=== PATIENT | male | born 1940 | race Caucasian/White ===

== ENCOUNTER 2020-07-12 19:36 | Inpatient (IN) | payer OTHER, MEDICAID, SELFPAY ==
[~2020-07-12] VITALS: Ht 182.9 cm; Wt 53.5 kg
[2020-07-12 19:36] VITALS: BP 92/52
[2020-07-12] MEDS ORDERED: NACL 0.9% 1,000 ML IV ONE (19:50)
--- NOTE | 2020-07-12 19:52 | NUR ---
PT BIB AMBULANCE FROM [facility]. UPON ARRIVAL PT IS AWAKE, ALERT, ABLE TO SHAKE HEAD YES OR NO WHEN ASKED SIMPLE QUESTIONS. PT WAS COVID POSITIVE 2 WEEKS AGO BUT SINCE HAS HAD TWO NEGATIVE TESTS. RESPIRATIONS REGULAR, UNLABORED, AND EVEN, PT ON RA O2 SAT 100%. PT PLACED ON BEDSIDE MONITOR. BED IN LOWEST POSITION AND SIDERAILS UP X 1. ALLERGIES - IBUPROFEN MED HX - PARKINSONS, HTN, DEMENTIA
--- NOTE | 2020-07-12 20:00 | NUR ---
LABS DRAWN BY COURTNEY REDDING AND GIVEN TO REGULATORY COMPLIANCE OFFICER
--- NOTE | 2020-07-12 20:13 | NUR ---
ATTEMPTED TO DO IN AND OUT CATH, EXPLAINED TO PT HE BECAME VERY UPSET SHAKING HEAD NO AND TRYING TO GET OUT OF BED. MD GRANADOS NOTIFIED PT REFUSING CATH. URINAL PLACED AT BEDSIDE. PT ALSO WROTE A NOTE C/O SORE TO BUTTOCKS AND SHOWED ME. HE HAS SORE TO COCCYZ AREA, WHEN ASKED IF IT HURTS HE ANSWERED YES. MD STEVENS.
--- NOTE | 2020-07-12 20:16 | NUR ---
X-RAY AT BEDSIDE
[2020-07-12] MEDS ORDERED: MORPHINE SULFATE 2 MG/ML SYR IVP ONE (20:30)
--- NOTE | 2020-07-12 20:35 | NUR ---
PT TAKEN TO CT VIA [facility]
[2020-07-12 20:36] LABS: BASOPHILS % (AUTO) 0.4 % (0.0-2.0); EOSINOPHILS # (AUTO) 0.1 K/uL (0-0.4); EOSINOPHILS % (AUTO) 2.8 % (0.0-4.0); HEMATOCRIT 23.7 % (36-52); HEMOGLOBIN 7.7 g/dL (12.0-18.0); LYMPHOCYTES # (AUTO) 0.7 K/uL (2.0-11.5); LYMPHOCYTES % (AUTO) 15.8 % (20.5-51.1); MEAN CORPUSCULAR HEMOGLOBIN 30 pg (27-31); MEAN CORPUSCULAR HGB CONC 33 g/dL (33-37); MEAN CORPUSCULAR VOLUME 92.6 fL (80-94); MONOCYTES # (AUTO) 0.3 K/uL (0.8-1.0); MONOCYTES % (AUTO) 7.9 % (1.7-9.3); NEUTROPHILS # (AUTO) 3.2 K/uL (1.8-7.7); NEUTROPHILS % (AUTO) 73.1 % (42.2-75.2); PLATELET COUNT (AUTO) 150 K/uL (140-450); RED BLOOD CELL COUNT(AUTO) 2.56 MIL/uL (4.20-6.10); RED CELL DISTRIBUTION WIDTH 14.8 % (11.6-13.7); WHITE BLOOD COUNT (AUTO) 4.4 K/uL (4.8-10.8)
--- NOTE | 2020-07-12 20:36 | NUR ---
SPOKE TO PT'S FAMILY IN WAITING ROOM AND UPDATED THEM ON PT'S STATUS. ALSO SPOKE TO PT'S SON PAPITO ON THE PHONE AND UPDATED HIM WELL. ADVISED WE ARE RUNNING LABS AND SOME TESTS AT THIS TIME. PAPITO WOULD LIKE UPDATES WHEN RESULTS ARE BACK AND IF HIS DAD WILL BE ADMITTED. PHONE NUMBER [phone]
[2020-07-12 20:52] LABS: ALBUMIN 2.8 g/dL (3.4-5.0); ANION GAP 12.4 (8-16); ASPARTATE AMINOTRANSFERASE 11 U/L (15-37); CARBON DIOXIDE 24.6 mmol/L (21-32); CHLORIDE 109 mmol/L (98-107); CREATININE 2.7 mg/dL (0.6-1.3); GLUCOSE 89 mg/dL (74-106); SODIUM SERUM 140 mmol/L (136-145); TOTAL BILIRUBIN 0.4 mg/dL (0.0-1.0); UREA NITROGEN, BLOOD 41 mg/dL (7-18)
--- NOTE | 2020-07-12 21:01 | NUR ---
[facility]
[2020-07-12] MEDS ORDERED: INSULIN REGULAR, HUMAN 100 UNIT/ML VIAL SUBQ ONE (21:20)
[2020-07-12] MEDS ORDERED: DEXTROSE 50% 50 ML SYR IVP ONE (21:20)
[2020-07-12] MEDS ORDERED: NACL 0.9% 1,000 ML IV SCH (21:42)
[2020-07-12] MEDS ORDERED: MORPHINE SULFATE 2 MG/ML SYR IVP PRN (21:45)
[2020-07-12] MEDS ORDERED: ACETAMINOPHEN 325 MG TAB PO PRN (21:45)
[2020-07-12] MEDS ORDERED: DOCUSATE SODIUM 100 MG GELCAP PO PRN (21:45)
[2020-07-12] MEDS ORDERED: ONDANSETRON 4 MG/2 ML VIAL IVP PRN (21:45)
[2020-07-12] MEDS ORDERED: HYDROcodone/APAP 5/325 MG 1 TAB TAB PO PRN (21:45)
[2020-07-12] MEDS ORDERED: LORazepam 2 MG/ML VIAL IM/IVP PRN (21:45)
[2020-07-12] MEDS ORDERED: ZOLPIDEM 5 MG TAB PO PRN (21:45)
[2020-07-12] MEDS ORDERED: CALCIUM GLUCONATE 10% 1,000 MG in NACL 0.9% 50 ML IV ONE (21:50)
--- NOTE | 2020-07-12 22:05 | NUR ---
SPOKE TO PATIENT'S SON PAPITO AND ADVISED THAT HIS DAD WILL BE ADMITTED FOR ELEVATED K+
[2020-07-12 22:12] LABS: PROTHROMBIN TIME 10.3 secs (10.8-13.4)
[2020-07-12 22:23] LABS: CHOL/HDL RATIO 3.4 (1-4.5); FREE T4 (FREE THYROXINE) 1.05 ng/dL (0.76-1.46); MAGNESIUM 1.6 mg/dL (1.8-2.4); PHOSPHORUS 3.5 mg/dL (2.5-4.9); THYROID STIMULATING HORMONE 4.37 uIU/mL (0.34-3.74)
[2020-07-12] MEDS ORDERED: ASCO500T95 PO (23:40)
[2020-07-12] MEDS ORDERED: MAGN400S60 PO (23:40)
[2020-07-12] MEDS ORDERED: PIMA34CA PO (23:40)
[2020-07-12] MEDS ORDERED: RASA1TAB PO (23:40)
[2020-07-12] MEDS ORDERED: BISA-28 PO (23:40)
[2020-07-12] MEDS ORDERED: CARB1TAB8 PO (23:40)
[2020-07-12] MEDS ORDERED: MULT-1469 PO (23:40)
[2020-07-12] MEDS ORDERED: CALC500C17 PO (23:40)
[2020-07-12] MEDS ORDERED: CYAN-11 PO (23:40)
[2020-07-12] MEDS ORDERED: SODI15SU PO (23:40)
[2020-07-12] MEDS ORDERED: LACT10SO1 PO (23:40)
[2020-07-12] MEDS ORDERED: GABA100C PO (23:40)
[2020-07-12] MEDS ORDERED: FERR-212 PO (23:40)
--- NOTE | 2020-07-12 23:45 | NUR ---
PT RESTING AT THIS TIME, REMAINS ON BESIDE MONITOR, V/S WNL. RESPIRATIONS REGULAR, UNLABORED, AND EVEN.
--- NOTE | 2020-07-13 01:41 | NUR ---
Patient will be admitted to care of DR GAN. Admited to TELE. Will go to room 107B. Belongings list completed. Report to KALINA REDDING.
[2020-07-13 03:14] VITALS: BP 114/59
[2020-07-13 06:25] LABS: BASOPHILS % (AUTO) 0.3 % (0.0-2.0); EOSINOPHILS % (AUTO) 0.2 % (0.0-4.0); HEMATOCRIT 25.9 % (36-52); HEMOGLOBIN 8.3 g/dL (12.0-18.0); LYMPHOCYTES # (AUTO) 0.6 K/uL (2.0-11.5); LYMPHOCYTES % (AUTO) 9.5 % (20.5-51.1); MEAN CORPUSCULAR HEMOGLOBIN 30 pg (27-31); MEAN CORPUSCULAR HGB CONC 32 g/dL (33-37); MEAN CORPUSCULAR VOLUME 92.3 fL (80-94); MONOCYTES # (AUTO) 0.5 K/uL (0.8-1.0); MONOCYTES % (AUTO) 8.2 % (1.7-9.3); NEUTROPHILS # (AUTO) 4.8 K/uL (1.8-7.7); NEUTROPHILS % (AUTO) 81.8 % (42.2-75.2); PLATELET COUNT (AUTO) 158 K/uL (140-450); RED CELL DISTRIBUTION WIDTH 14.6 % (11.6-13.7); WHITE BLOOD COUNT (AUTO) 5.8 K/uL (4.8-10.8)
[2020-07-13] MEDS ORDERED: MAG SULF 2000 MG/WATER PREMIX 50 ML IV ONE (06:30)
--- NOTE | 2020-07-13 07:10 | NUR ---
RECEIVED REPORT FROM NIGHT NURSE KALINA, PT IS SLEEPING, BED BOUND AND WITH IV SITE INTACT AND PATENT ON THE RIGHT FA. ON ROOM AIR , SAFETY MEASURES IN PLACE AND CALL LIGHT WITHIN REACH. WILL CONTINUE TO MONITOR.
[2020-07-13 08:00] VITALS: BP 138/67
[2020-07-13 08:13] LABS: ANION GAP 14.8 (8-16); CARBON DIOXIDE 21.6 mmol/L (21-32); CHLORIDE 111 mmol/L (98-107); CREATININE 2.1 mg/dL (0.6-1.3); POTASSIUM 5.4 mmol/L (3.5-5.1); SODIUM SERUM 142 mmol/L (136-145); UREA NITROGEN, BLOOD 39 mg/dL (7-18)
--- NOTE | 2020-07-13 08:37 | NUR ---
DR PULIDO ORDERED MECHANICAL SOFT THIN LIQUID DIET FOR PATIENT. SAFETY MEASURES IN PLACE AND CALL LIGHT WITHIN REACH. WILL CONTINUE TO MONITOR.
[2020-07-13 08:56] LABS: GLUCOSE 39 mg/dL (74-106)
--- NOTE | 2020-07-13 08:56 | NUR ---
RECEIVED CRITICAL LAB RESULT LIZ ESCALANTE, GLUCOSE 39MG/DL. AT THIS TIME. FOOD GIVEN AND IVF .
--- NOTE | 2020-07-13 10:09 | NUR ---
COVID 19 ANTIGEN BRYCE ORDERED FOR PATIENT. DONE AND SUBMITTED TO LABORATORY. AWAITING FOR RESULTS.
[2020-07-13 12:00] VITALS: BP 129/70
--- NOTE | 2020-07-13 12:00 | NUR ---
CHECK BLOOD SUGAR AT THIS TIME 60MG/DL. REPORTED TO DR PULIDO AND ORDERED DEXTROSE 50 IVP. SAFETY MEASURED IN PLACE AND CALL LIGHT WITHIN REACH. WILL CONTINUE TO MONITOR.
[2020-07-13] MEDS ORDERED: DEXTROSE 50% 50 ML SYR IVP SCH (12:35)
--- NOTE | 2020-07-13 12:41 | NUR ---
DISCHARGE PLANNING: THIS IS AN 80 Y/O MALE PATIENT FROM [facility], WHO WAS BROUGHT IN DUE ALTERED MENTAL STATUS AND FATIGUE. PAST MEDICAL HISTORY INCLUDE DEMENTIA, PARKINSON'S DISEASE, HTN. INITIAL DIAGNOSIS OF HYPERKALEMIA AND GENERALIZED WEAKNESS. CURRENT LABS INCLUDE WBC 5.8, H/H 8.3/25.9, na/k 142/39/2.1. COVID PENDING. NEPHRO CONSULT IN PLACE. DC PLAN BACK TO [facility] ONCE STABLE. Addendum: 07/16/20 at 1632 by Sarita Lopez CM RECEIVED AN ORDER TO DC BACK TO [facility]. SHAKIR OF [facility] MADE AWARE. CONTACTED PATIENT'S SON KARISHMA MICHAEL AT [phone] TO DISCUSS DC PLAN AND IM LETTER, NO ANSWER. LEFT MESSAGE WITH PHONE NUMBER. WILL FOLLOW UP. Addendum: 07/16/20 at 1645 by Sarita Lopez CM CONTACTED PATIENT'S SON MAGALYS BENNETT AT [phone] TO DISCUSS DC PLAN AND IMM LETTER AND IS IN AGREEMENT. Addendum: 07/16/20 at 1715 by Sarita Lopez CM PER SHAKIR OF [facility], THEY ARE ABLE TO TAKE THE PATIENT BACK. WILL CALL ME BACK FOR ROOM NUMBER [id number] AND WILL BE UNDER THE CARE OF DR. CRONIN. SHE ALSO STATED TO ARRANGE TRANSPORT AND BILL [facility]. CONTACTED [facility] [employer] [facility] AT [phone], ABLE TO SPEAK TO HELIO. PER [employer], THEY ARE NOT WORKING TODAY. CONTACTED [employer] [facility] AT [phone], ABLE TO SPEAK [employer]. PER [employer] NO AVAILABILITY FOR [place] TODAY. CONTACTED [employer] [facility] AT [phone], ABLE TO SPEAK TO [place]. PER [place] THEY ARE NOT CONTRACTED WITH [facility] HOWEVER THEY CAN PROVIDE SERVICES LONG THEIR IS A CREDIT CARD ON FILE. SHAKIR IRWIN [facility] MADE AWARE. SHE STATED SHE DOES NOT HAVE A [employer] CREDIT CARD. CONTACTED [facility] IF THEY ARE ABLE TO DO EARLY ROUNDHOUSE SUPERVISOR TOMORROW , ABLE TO SPEAK TO SPEAK TO HELIO. ROUNDHOUSE SUPERVISOR IS SCHEDULED BETWEEN [phone]. CHARGE NURSE, DR. PULIDO, SHAKIR IRWIN [facility] AND PRIMARY RN MADE AWARE.
--- NOTE | 2020-07-13 13:00 | NUR ---
PATIENT TESTED NEGATIVE FOR COVID 19 ANTIGEN BRYCE.
[2020-07-13] MEDS: DEXT 5% / NACL 0.45% 1,000 ML IV SCH (13:31)
--- NOTE | 2020-07-13 14:41 | NUR ---
07/13/20 RD INITIAL ASSESSMENT COMPLETED PLEASE REFER TO NUTRITION ASSESSMENT UNDER CARE ACTIVITY FOR ESTIMATED NUTRITIONAL NEEDS. 1. PENDING SWALLOW EVALUATION AND EMERGENCY TECHNICIAN RECOMMENDATIONS FOR FOOD TEXTURE 2. RECOMMEND ENSURE TID 3. CONTINUE TO RPOVIDE ASSISTANCE WITH MEALS 4. RD TO FOLLOW-UP 2-3 DAYS, HIGH RISK MICHAEL LÓPEZ RD
[2020-07-13 16:00] VITALS: BP 129/63
[2020-07-13] MEDS ORDERED: bisacodyL 5 MG TABEC PO PRN (16:20)
[2020-07-13] MEDS ORDERED: MAGNESIUM HYDROXIDE 2400 MG/30 ML UDC PO PRN (16:20)
[2020-07-13] MEDS: GABAPENTIN 100 MG CAP PO SCH (17:00)
[2020-07-13] MEDS: CARBIDOPA/LEVODOPA 25/100 MG 1 TAB PO SCH (17:00)
--- NOTE | 2020-07-13 18:14 | NUR ---
PATIENT SON CALLED TO GET UPDATES ABOUT HIS FATHER AT THIS TIME. PT IS EATING WELL AND TOLERATED APPLESAUCE.SAFETY MEASURES IN PLACE AND CALL LIGHT WITHIN REACH. WILL CONTINUE TO MONITOR.
--- NOTE | 2020-07-13 19:10 | NUR ---
ENDORSED TO NIGHT NURSE FOR CONTINUITY OF CARE. PT IS STABLE
--- NOTE | 2020-07-13 19:12 | NUR ---
RECEIVED REPORT FROM AM RN. PT IS STABLE IN NO DISTRESS. RECEIVING IVF D5 1/2 NS AT 100ML/HR. RESPIRATION EVEN AND UNLABORED. ALL SAFETY MEASURES IN PLACE. WILL CONTINUE WITH POC.
[2020-07-13 19:25] LABS: CARBON DIOXIDE 22.6 mmol/L (21-32); CHLORIDE 110 mmol/L (98-107); CREATININE 1.9 mg/dL (0.6-1.3); GLUCOSE 111 mg/dL (74-106); POTASSIUM 5.6 mmol/L (3.5-5.1); SODIUM SERUM 140 mmol/L (136-145); UREA NITROGEN, BLOOD 33 mg/dL (7-18)
[2020-07-13 20:00] VITALS: BP 115/66
--- NOTE | 2020-07-13 20:45 | NUR ---
RECEIVED A CALL FROM LAB REGARDING PATIENT'S BLOOD CULTURE RESULTS= GRAM POSITIVE COCCI IN CLUSTER AND PAIRS. MD WAS CALLED AND NOTIFIED AND ORDERED. REPEAT BLOOD CULTURE, ROCEPHIN 1 GRAM IV DAILY START TONIGHT AND LACTUSBABILLUS TAB DAILY. ORDERS SUBMITTED.
[2020-07-13] MEDS: FERROUS SULFATE 325 MG TABEC PO SCH (20:49)
--- NOTE | 2020-07-13 21:30 | NUR ---
PATIENT IS AWAKE AND ORIENTED X 3 HAS MOMENTS OF INCREASED CONFUSION PER HX DEMENTIA, SOFT SPOKEN, IN NO DISTRESS. TOLERATED PO MEDICATION, HAS IV RIGHT FOREARM 20 GAUGE, PATENT AND INTACT RECEIVING IVF D5-1/2NS AT 100 ML/HR. PT IS INCONTINENT. V/S: 98.6, 60, 20, 115/66, 100% ON 2 L NC. LUNG SOUND DIMINISHED ON THE BASES, ABDOMEN SOFT AND NON-TENDER BS ACTIVE X 4. MRSA SWAB COLLECTED WITH NO COMPLICATIONS AND ROUTED TO LAB. WILL CONTINUE TO MONITOR.
[2020-07-13] MEDS ORDERED: cefTRIAXone 500 MG VIAL ONE (21:45)
--- NOTE | 2020-07-13 23:00 | NUR ---
PT WAS STARTED ON ROCEPHIN PER MD ORDER AT 2145 DUE TO BLOOD CULTURE GRAM POSITIVE COCCI IN CLUSTERS AND PAIRS. PT ALSO HAD REPEAT BLOOD CULTURE PRIOR TO ANTIBIOTIC GIVEN. TOLERATED PROCEDURE WELL. NO ADVERSE SIDE EFFECTS NOTED FROM ANTIBIOTIC USE. WILL CONTINUE TO MONITOR.
[2020-07-14] VITALS: BP 143/63
--- NOTE | 2020-07-14 00:15 | NUR ---
PT RESTING IN BED WITH EYES CLOSED RESPIRATION EVEN AND UNLABORED. IN NO DISTRESS. V/S: 98.3, 61, 20, 143/63, 100% RA. O2 SUPPLEMENT WAS TITRATED DOWN FROM 2 L TO NO OXYGEN AND PT. MAINTAINED ABOVE 95% WITH NO SOB OR RESPIRATORY DISTRESS. WILL CONTINUE TO MONITOR.
[2020-07-14] MEDS: DEXT 5% / NACL 0.45% 1,000 ML IV SCH ×3 (01:35→19:10)
--- NOTE | 2020-07-14 02:35 | NUR ---
ASLEEP, RESPIRATION EVEN AND UNLABORED. IN NO DISTRESS. MUSCLES RELAXED. ENVIRONMENT HAZARD FREE. WILL CONTINUE TO MONITOR.
[2020-07-14 04:00] VITALS: BP 124/54
--- NOTE | 2020-07-14 04:10 | NUR ---
PT RESTING IN BED WITH EYES CLOSED. V/S: 98.3, 56, 16, 124/54, 94% RA. ASSISTED WITH PROVISION OF CARE. UNABLE TO COLLECT URINE SAMPLE DUE TO PT BEING INCONTINENT. TURNED TO PREVENT PRESSURE. WILL CONTINUE TO MONITOR.
--- NOTE | 2020-07-14 06:20 | NUR ---
PT AWAKE IN NO DISTRESS. RESPIRATION EVEN AND UNLABORED. SPO2 99% ON RA. PT OBSERVED MUMBLING UNABLE TO MAKE CLEAR WHAT HE IS SAYING. HAS MOMENTS OF CONFUSION DUE TO HX OF DEMENTIA. CALL LIGHT WITHIN REACH. ALL NEEDS MET AT THIS TIME.
[2020-07-14 07:06] LABS: BASOPHILS % (AUTO) 0.5 % (0.0-2.0); EOSINOPHILS # (AUTO) 0.2 K/uL (0-0.4); EOSINOPHILS % (AUTO) 3.7 % (0.0-4.0); HEMATOCRIT 23.9 % (36-52); HEMOGLOBIN 7.7 g/dL (12.0-18.0); LYMPHOCYTES # (AUTO) 1.3 K/uL (2.0-11.5); LYMPHOCYTES % (AUTO) 30.3 % (20.5-51.1); MEAN CORPUSCULAR HEMOGLOBIN 30 pg (27-31); MEAN CORPUSCULAR HGB CONC 32 g/dL (33-37); MONOCYTES # (AUTO) 0.5 K/uL (0.8-1.0); NEUTROPHILS # (AUTO) 2.3 K/uL (1.8-7.7); NEUTROPHILS % (AUTO) 54.5 % (42.2-75.2); PLATELET COUNT (AUTO) 137 K/uL (140-450); RED CELL DISTRIBUTION WIDTH 14.4 % (11.6-13.7); WHITE BLOOD COUNT (AUTO) 4.3 K/uL (4.8-10.8)
--- NOTE | 2020-07-14 07:12 | NUR ---
PT ENDORSED TO AM RN. PT IS STABLE IN NO DISTRESS.
--- NOTE | 2020-07-14 07:22 | NUR ---
RECEIVED REPORT FROM NIGHT RN. PT A/OX 3 HAS MOMENTS OF INCREASED CONFUSION PER HX DEMENTIA. RESPIRATION EVEN AND UNLABORED, LUNG SOUNDS DIMINISHED IN BASES ON ROOM AIR. HAS IV RIGHT FOREARM 20 GAUGE, PATENT AND INTACT RECEIVING IVF D5-1/2NS AT 100 ML/HR. PT IS INCONTINENT. SAFETY PRECAUTIONS IN PLACE, BED IN LOW POSITION, CALL LIGHT IN REACH. WILL CONTINUE TO MONITOR.
[2020-07-14] MEDS: LACTULOSE 20 GM/30 ML UDC PO SCH (08:27)
[2020-07-14] MEDS: GABAPENTIN 100 MG CAP PO SCH ×3 (08:27→16:18)
[2020-07-14] MEDS: VIT-B COMP/VIT-C/FOLIC ACID 1 TAB PO SCH (08:27)
[2020-07-14] MEDS: LACTOBACILLUS RHAMNOSUS GG 1 EACH CAP PO SCH (08:27)
[2020-07-14] MEDS: CALCIUM CARBONATE 500 MG TAB.CHEW PO SCH (08:27)
[2020-07-14] MEDS: CARBIDOPA/LEVODOPA 25/100 MG 1 TAB PO SCH ×3 (08:28→16:19)
[2020-07-14] MEDS: FERROUS SULFATE 325 MG TABEC PO SCH ×2 (08:29→21:21)
[2020-07-14] MEDS: ASCORBIC ACID 500 MG TAB PO SCH (08:29)
[2020-07-14] MEDS: SELEGILINE 5 MG TAB PO SCH ×2 (08:29→14:35)
[2020-07-14] MEDS: CYANOCOBALAMIN 1,000 MCG TAB PO SCH (08:29)
[2020-07-14] MEDS ORDERED: bisacodyL 10 MG SUPP RC SCH (09:00)
--- NOTE | 2020-07-14 09:10 | NUR ---
PHYSICAL THERAPIST AT BEDSIDE
--- NOTE | 2020-07-14 09:48 | NUR ---
PT REFUSED DULCOLAX. MEDICATION EDUCATION GIVEN. PT STILL REFUSED. WILL CONTINUE TO MONITOR.
[2020-07-14 09:51] VITALS: BP 156/78
[2020-07-14 09:59] LABS: IRON, SERUM 69 ug/dl (50-175); TOTAL IRON BINDING CAPACITY 156 ug/dl (250-450)
--- NOTE | 2020-07-14 10:20 | NUR ---
SKIN ASSESSMENT DONE WITH PRIMARY RN AT BED SIDE , PT IS ABLE TO TURN AND REPOSITION WITH SOME ASSISTANCE. PT. ADMITTED WITH PRESSURE INJURY TO RIGHT SACRUM AREA. POC DISCUSSED WITH PRIMARY RN AND PT. PT. VERBALIZES UNDERSTANDING, NEED REINFORCE TEACHING. INTEGUMENTARY: -RIGHT BUTTOCK SKIN INTACT -RIGHT SACRUM PRESSURE INJURY STAGE 2 0.5X0.8X0.2 CM WOUND BED 100% GRANULATING TISSUE, MOIST NO ODOR, JULEE WOUND SKIN INTACT, SURROUNDING REDNESS FURTHER DAMAGE INDICATED. -BLE DRY AND FLAKY SKIN RECOMMENDATIONS: -APPLY FOAM DRESSING TO COCCYX AREA QD AND PRN IF SOILING -CLEANSE SACRUM WOUND WITH NS, PAT DRY, APPLY HYDROCOLLOID DRESSING, DRESSING CHANGE 3X/WEEK ON [id number] AND PRN IF SOILING -APPLY HYDROGEL TO BLE BID AND SAND DRIER -TURN AND REPOSITION PATIENT Q 2H -ASSESS AND MONITOR SKIN CONDITION DURING POSITION CHANGE, PLEASE PAY ATTENTION TO SACRALCOCCYX, ELBOWS AND HEELS -OFFLOAD BILATERAL HEELS BY PLACING PILLOWS UNDER CALVES AT ALL TIMES, UNLESS OTHERWISE CONTRAINDICATED -PRESSURE REDISTRIBUTION SURFACE THERAPY -PODIATRY CONSULTS IN PLACE -BLE ARTERIAL AND VENOUS U/S PENDING RESULTS -KEEP SKIN CLEAN AND DRY AT ALL TIMES. RECOMMENDATIONS DISCUSSED WITH PRIMARY RN PLEASE CONTACT WOUND CARE NURSE FOR ANY QUESTIONS AND CHANGES IN SKIN CONDITION. Addendum: 07/14/20 at 1605 by Sarina Cano RN (Grace) CORRECTION: -APPLY HYDROGUARD TO BLE BID AND SAND DRIER
--- NOTE | 2020-07-14 10:25 | NUR ---
NEW IV SITE LEFT FOREARM G20. PATIENT TOLERATED IV INSERTION WELL.
[2020-07-14 10:35] LABS: ALBUMIN 2.7 g/dL (3.4-5.0); ANION GAP 16.5 (8-16); ASPARTATE AMINOTRANSFERASE 12 U/L (15-37); CARBON DIOXIDE 19.4 mmol/L (21-32); CHLORIDE 108 mmol/L (98-107); CREATININE 1.7 mg/dL (0.6-1.3); GLUCOSE 75 mg/dL (74-106); MAGNESIUM 1.8 mg/dL (1.8-2.4); POTASSIUM 4.9 mmol/L (3.5-5.1); SODIUM SERUM 139 mmol/L (136-145); TOTAL BILIRUBIN 0.2 mg/dL (0.0-1.0); UREA NITROGEN, BLOOD 28 mg/dL (7-18)
--- NOTE | 2020-07-14 11:08 | NUR ---
INTENSIVE CARE UNIT NURSE AT BEDSIDE CLEANING AND REPOSITIONING PATIENT.
--- NOTE | 2020-07-14 12:00 | NUR ---
URINE SAMPLE COLLECTED AND SENT TO THE LAB
[2020-07-14 12:14] VITALS: BP 126/63
--- NOTE | 2020-07-14 12:31 | NUR ---
ASSISTED PT WITH LUNCH. PT CONSUMED 25% OF LUNCH. 250ML FLUIDS.
[2020-07-14] MEDS ORDERED: EPOETIN ALFA 20,000 UNITS/ML VIAL SUBQ SCH (13:00)
--- NOTE | 2020-07-14 13:09 | NUR ---
ADMINISTERED SCHEDULED MEDS. PT TOLERATED WELL, NO ACUTE DISTRESS NOTED.
--- NOTE | 2020-07-14 13:10 | NUR ---
PT C/O 7/10 ACHING NECK PAIN, GIVEN NORCO PRN. WILL CONTINUE TO MONITOR.
--- NOTE | 2020-07-14 14:38 | NUR ---
ADMINISTERED SCHEDULED MEDS. PT TOLERATED WELL.
--- NOTE | 2020-07-14 14:50 | NUR ---
ULTRASOUND AT BEDSIDE.
--- NOTE | 2020-07-14 15:12 | NUR ---
TECHNICAL SUPPORT INTERN NOTE: SW ATTEMPTED TO CONTACT PATIENT'S SON KARISHMA MICHAEL [phone]. SW LEFT VM AND WILL FOLLOW UP.
--- NOTE | 2020-07-14 15:50 | NUR ---
WOUND CARE PERFORMED. HYDROCOLLOID AND OPTIFOAM DRESSING APPLIED TO SACRAL COCCYX. HYDRAGUARD APPLIED TO BILAT. LOWER EXTREMITIES. HEEL PROTECTORS APPLIED. PT TOLERATED, WILL CONT. TO MONITOR Addendum: 07/14/20 at 1558 by Princess Danae Ba RN REPOSITIONED TO RIGHT-SIDE LYING. LEGS ELEVATED. VOIDED, CLEAR YELLOW NOTED.
--- NOTE | 2020-07-14 16:23 | NUR ---
ADMINISTERED SCHEDULED MEDS. PT TOLERATED. NO ACUTE DISTRESS NOTED.
[2020-07-14 16:27] VITALS: BP_SYST 154; BP_SYST 176; BP_DIAS 81; BP_DIAS 82
--- NOTE | 2020-07-14 16:56 | NUR ---
RADIOLOGY CALLED, NOTIFIED ME THAT ORDER FOR ULTRASOUND OF KIDNEYS WAS CANCELLED. FOLLOWED UP WITH DR PULIDO, WAS TOLD TO REORDER ULTRASOUND OF KIDNEYS. ORDER PLACED.
--- NOTE | 2020-07-14 18:40 | NUR ---
PATIENT ASLEEP AT THIS TIME. NO S/S OF DISTRESS NOTED. HEEL PROTECTORS IN PLACE. LEGS ELEVATED. FALL PRECAUTION IN PLACE. WILL CONTINUE TO MONITOR
[2020-07-14 18:48] LABS: APPEARANCE,URINE CLEAR (CLEAR); BILIRUBIN,URINE NEGATIVE (NEGATIVE); BLOOD, URINE NEGATIVE (NEGATIVE); LEUKOCYTE ESTERASE ,URINE NEGATIVE (NEGATIVE); NITRITE, URINE NEGATIVE (NEGATIVE); UGLUCOSE NEGATIVE (NEGATIVE)
[2020-07-14 19:02] LABS: COLOR,URINE STRAW (YELLOW)
--- NOTE | 2020-07-14 19:20 | NUR ---
ENDORSED PT TO NIGHT RN. PT IN STABLE CONDITION.
[2020-07-14 20:00] VITALS: BP 122/60
[2020-07-15] VITALS: BP 128/69
[2020-07-15] MEDS: HYDRAGUARD CREAM TP SCH ×2 (01:16→13:19)
[2020-07-15 04:00] VITALS: BP 132/87
[2020-07-15] MEDS: DEXT 5% / NACL 0.45% 1,000 ML IV SCH ×2 (04:55→10:00)
[2020-07-15 06:11] LABS: BASOPHILS % (AUTO) 0.7 % (0.0-2.0); EOSINOPHILS # (AUTO) 0.3 K/uL (0-0.4); EOSINOPHILS % (AUTO) 6.1 % (0.0-4.0); HEMATOCRIT 27.2 % (36-52); HEMOGLOBIN 8.8 g/dL (12.0-18.0); LYMPHOCYTES # (AUTO) 1.6 K/uL (2.0-11.5); LYMPHOCYTES % (AUTO) 37.5 % (20.5-51.1); MEAN CORPUSCULAR HEMOGLOBIN 30 pg (27-31); MEAN CORPUSCULAR HGB CONC 32 g/dL (33-37); MEAN CORPUSCULAR VOLUME 92.5 fL (80-94); MONOCYTES # (AUTO) 0.4 K/uL (0.8-1.0); MONOCYTES % (AUTO) 9.7 % (1.7-9.3); PLATELET COUNT (AUTO) 140 K/uL (140-450); RED BLOOD CELL COUNT(AUTO) 2.93 MIL/uL (4.20-6.10); RED CELL DISTRIBUTION WIDTH 14.6 % (11.6-13.7); WHITE BLOOD COUNT (AUTO) 4.4 K/uL (4.8-10.8)
[2020-07-15 06:35] LABS: ALBUMIN 2.8 g/dL (3.4-5.0); ANION GAP 13.2 (8-16); ASPARTATE AMINOTRANSFERASE 14 U/L (15-37); CARBON DIOXIDE 22.6 mmol/L (21-32); CHLORIDE 109 mmol/L (98-107); CREATININE 1.5 mg/dL (0.6-1.3); GLUCOSE 73 mg/dL (74-106); POTASSIUM 4.8 mmol/L (3.5-5.1); SODIUM SERUM 140 mmol/L (136-145); TOTAL BILIRUBIN 0.3 mg/dL (0.0-1.0); UREA NITROGEN, BLOOD 22 mg/dL (7-18)
--- NOTE | 2020-07-15 07:30 | NUR ---
RECEIVED REPORT FROM [facility] NURSE, ASSUMED CARE. PT RESTING COMFORTABLY IN BED WITH NO S/S OF PAIN AND/OR DISTRESS AT THIS TIME. PERSONAL BELONGINGS, BEDSIDE TABLE, CALL LIGHT WITHIN REACH. WILL CONTINUE TO MONITOR.
[2020-07-15 07:32] LABS: MAGNESIUM 1.6 mg/dL (1.8-2.4); PHOSPHORUS 3.1 mg/dL (2.5-4.9)
[2020-07-15 08:00] VITALS: BP 132/78
[2020-07-15] MEDS: CYANOCOBALAMIN 1,000 MCG TAB PO SCH (09:22)
[2020-07-15] MEDS: CALCIUM CARBONATE 500 MG TAB.CHEW PO SCH (09:22)
[2020-07-15] MEDS: FERROUS SULFATE 325 MG TABEC PO SCH ×2 (09:22→21:00)
[2020-07-15] MEDS: GABAPENTIN 100 MG CAP PO SCH ×3 (09:23→17:51)
[2020-07-15] MEDS: ASCORBIC ACID 500 MG TAB PO SCH (09:23)
[2020-07-15] MEDS: CARBIDOPA/LEVODOPA 25/100 MG 1 TAB PO SCH ×3 (09:23→17:51)
[2020-07-15] MEDS: LACTULOSE 20 GM/30 ML UDC PO SCH (09:32)
[2020-07-15] MEDS: LACTOBACILLUS RHAMNOSUS GG 1 EACH CAP PO SCH (09:33)
[2020-07-15] MEDS: HYDROCOLLOID DRESSING TP SCH (09:33)
[2020-07-15] MEDS: SELEGILINE 5 MG TAB PO SCH ×2 (09:33→15:09)
[2020-07-15] MEDS: VIT-B COMP/VIT-C/FOLIC ACID 1 TAB PO SCH (09:33)
--- NOTE | 2020-07-15 10:20 | NUR ---
(07/15/20) RD FOLLOW UP COMPLETED PLEASE REFER TO NUTRITION PROGRESS NOTE UNDER CARE ACTIVITY FOR ESTIMATED NUTRITION NEEDS. RD RECOMMENDATIONS: 1. CONTINUE MECHANICAL SOFT DIET TOLERATED 2. CONTINUE ENSURE TID 3. CONTINUE TO RPOVIDE ASSISTANCE WITH MEALS NEEDED 4. RD TO FOLLOW-UP 3-5 DAYS, MODERATE RISK LAWRENCE HOWELL MS, RDN
[2020-07-15 12:00] VITALS: BP 128/70
[2020-07-15 16:00] VITALS: BP 118/63
--- NOTE | 2020-07-15 18:24 | NUR ---
CARE PLAN REVIEWED, INTERVENTIONS IMPLEMENTED: PT REPOSITIONED FREQUENTLY THROUGHOUT SHIFT, NUTRITION ENCOURAGEMENT, LABS AND I/O MONITORED, WOUND MGMT. VSS, AFEBRILE, O2 SAT >92% ON 1 LPM NC. NO C/O PAIN THROUGHOUT SHIFT. PT CONTINUES ON IV FLUIDS WITH NO ADVERSE REACTIONS NOTED AND/OR REPORTED. SPOKE WITH SON, RE: DISCHARGE PLAN. PERSONAL BELONGINGS, BEDSIDE TABLE, CALL LIGHT WITHIN REACH. WILL CONTINUE TO MONITOR.
[2020-07-15 20:00] VITALS: BP 173/89
[2020-07-16] VITALS: BP 136/66
[2020-07-16] MEDS: HYDRAGUARD CREAM TP SCH ×2 (01:21→13:59)
[2020-07-16] MEDS: DEXT 5% / NACL 0.45% 1,000 ML IV SCH ×3 (01:22→21:10)
[2020-07-16 04:13] VITALS: BP 128/75
[2020-07-16 06:04] LABS: BASOPHILS % (AUTO) 0.5 % (0.0-2.0); EOSINOPHILS # (AUTO) 0.3 K/uL (0-0.4); EOSINOPHILS % (AUTO) 5.8 % (0.0-4.0); HEMATOCRIT 26.7 % (36-52); HEMOGLOBIN 8.5 g/dL (12.0-18.0); LYMPHOCYTES # (AUTO) 1.5 K/uL (2.0-11.5); LYMPHOCYTES % (AUTO) 34.8 % (20.5-51.1); MEAN CORPUSCULAR HEMOGLOBIN 30 pg (27-31); MEAN CORPUSCULAR HGB CONC 32 g/dL (33-37); MONOCYTES # (AUTO) 0.6 K/uL (0.8-1.0); MONOCYTES % (AUTO) 12.6 % (1.7-9.3); NEUTROPHILS % (AUTO) 46.3 % (42.2-75.2); PLATELET COUNT (AUTO) 131 K/uL (140-450); RED BLOOD CELL COUNT(AUTO) 2.87 MIL/uL (4.20-6.10); RED CELL DISTRIBUTION WIDTH 14.6 % (11.6-13.7); WHITE BLOOD COUNT (AUTO) 4.4 K/uL (4.8-10.8)
[2020-07-16 06:14] LABS: ANION GAP 10.1 (8-16); CHLORIDE 109 mmol/L (98-107); CREATININE 1.6 mg/dL (0.6-1.3); GLUCOSE 79 mg/dL (74-106); POTASSIUM 5.1 mmol/L (3.5-5.1); SODIUM SERUM 140 mmol/L (136-145); UREA NITROGEN, BLOOD 18 mg/dL (7-18)
[2020-07-16 06:33] LABS: MAGNESIUM 1.5 mg/dL (1.8-2.4); PHOSPHORUS 3.9 mg/dL (2.5-4.9)
--- NOTE | 2020-07-16 07:30 | NUR ---
RECEIVED REPORT FROM [facility] NURSE, ASSUMED CARE. PT RESTING COMFORTABLY IN BED WITH NO S/S OF PAIN AND/OR DISTRESS AT THIS TIME. PERSONAL BELONGINGS, BEDSIDE TABLE, CALL LIGHT WITHIN REACH. WILL CONTINUE TO MONITOR.
[2020-07-16 08:00] VITALS: BP 109/63
[2020-07-16] MEDS ORDERED: SODIUM ZIRCONIUM CYCLOSILICATE 10 GM POWD.PACK PO SCH ×2 (09:00→15:00)
[2020-07-16] MEDS: LACTULOSE 20 GM/30 ML UDC PO SCH (09:00)
[2020-07-16] MEDS: MAG SULF 2000 MG/WATER PREMIX 50 ML IV SCH ×2 (09:09→11:43)
[2020-07-16] MEDS: VIT-B COMP/VIT-C/FOLIC ACID 1 TAB PO SCH (09:10)
[2020-07-16] MEDS: CYANOCOBALAMIN 1,000 MCG TAB PO SCH (09:10)
[2020-07-16] MEDS: GABAPENTIN 100 MG CAP PO SCH ×3 (09:10→16:27)
[2020-07-16] MEDS: CALCIUM CARBONATE 500 MG TAB.CHEW PO SCH (09:10)
[2020-07-16] MEDS: ASCORBIC ACID 500 MG TAB PO SCH (09:11)
[2020-07-16] MEDS: CARBIDOPA/LEVODOPA 25/100 MG 1 TAB PO SCH ×3 (09:11→16:28)
[2020-07-16] MEDS: FERROUS SULFATE 325 MG TABEC PO SCH ×2 (09:11→21:19)
[2020-07-16] MEDS: LACTOBACILLUS RHAMNOSUS GG 1 EACH CAP PO SCH (11:44)
[2020-07-16] MEDS: SELEGILINE 5 MG TAB PO SCH ×2 (11:44→16:28)
[2020-07-16 12:00] VITALS: BP 141/83
[2020-07-16 13:45] LABS: ANION GAP 11.9 (8-16); CARBON DIOXIDE 24.2 mmol/L (21-32); CHLORIDE 108 mmol/L (98-107); CREATININE 1.4 mg/dL (0.6-1.3); GLUCOSE 114 mg/dL (74-106); POTASSIUM 5.1 mmol/L (3.5-5.1); SODIUM SERUM 139 mmol/L (136-145); UREA NITROGEN, BLOOD 17 mg/dL (7-18)
--- NOTE | 2020-07-16 15:57 | NUR ---
CONSENT FOR COLONOSCOPY SIGNED BY PT AND PLACED IN FRONT OF PT'S CHART, AWAITING PHYSICIAN SIGNATURE. Addendum: 07/16/20 at 1558 by Manjit Petit RN IGNORE NOTE, WRONG PATIENT.
[2020-07-16 16:00] VITALS: BP 163/76
--- NOTE | 2020-07-16 18:15 | NUR ---
CARE PLAN REVIEWED, INTERVENTIONS IMPLEMENTED: PT REPOSITIONED THROUGHOUT SHIFT, LABS AND I/O MONITORED. NOURISHMENT/HYDRATION ENCOURAGED, WOUND MGMT. VSS, AFEBRILE, O2 SAT >92% ON RA. N/O PAIN THROUGHOUT SHIFT. PT CONTINUES ON IV FLUIDS, TOLERATING WELL. SPOKE WITH MAGALYS (SON) RE: PT'S CARE AND DISCHARGE PLAN. EMILE STEWART STATED PT POSSIBLY TO DISCHARGE 07/17/2020 [id number] VIA STRETCHER, NO TRANSPORT AVAILABLE THIS EVENING. ALL NEEDS MET THIS SHIFT. PERSONAL BELONGINGS, BEDSIDE TABLE, CALL LIGHT WITHIN REACH. WILL CONTINUE TO MONITOR.
--- NOTE | 2020-07-16 19:15 | NUR ---
RECEIVED PT FROM DAY RN. AOX2 ON ROOM AIR, O2 SAT 100%. NO S/S RESPIRATORY DISTRESS. DENIES PAIN. IV SITE R WRIST 22G, PATENT AND INTACT. IV FLUID RUNNING D5 1/2 NS AT 100ML/HR. SAFETY MEASURES IN PLACE. CALL LIGHT WITHIN REACH. WILL CONTINUE TO MONITOR
[2020-07-16 20:00] VITALS: BP 145/72
--- NOTE | 2020-07-16 21:20 | NUR ---
ADMINISTERED SCHEDULED MEDS PER MD. PT TOLERATED WELL. WILL CONTINUE TO MONITOR
--- NOTE | 2020-07-17 00:15 | NUR ---
PT ASLEEP IN BED. NO DISTRESS NOTED. WILL CONTINUE TO MONITOR
[2020-07-17] MEDS: DEXT 5% / NACL 0.45% 1,000 ML IV SCH (02:03)
[2020-07-17 04:00] VITALS: BP 153/65
[2020-07-17] MEDS: HYDRAGUARD CREAM TP SCH (04:57)
[2020-07-17 05:11] VITALS: BP 153/65
--- NOTE | 2020-07-17 06:45 | NUR ---
CALLED AND GAVE REPORT TO ARIANNA BREWSTER FOR TRANSFER OF CARE
[2020-07-17 07:05] LABS: BASOPHILS % (AUTO) 0.4 % (0.0-2.0); EOSINOPHILS # (AUTO) 0.2 K/uL (0-0.4); EOSINOPHILS % (AUTO) 3.5 % (0.0-4.0); HEMATOCRIT 26.6 % (36-52); HEMOGLOBIN 8.7 g/dL (12.0-18.0); LYMPHOCYTES # (AUTO) 0.9 K/uL (2.0-11.5); LYMPHOCYTES % (AUTO) 14.7 % (20.5-51.1); MEAN CORPUSCULAR HEMOGLOBIN 30 pg (27-31); MEAN CORPUSCULAR HGB CONC 33 g/dL (33-37); MONOCYTES # (AUTO) 0.9 K/uL (0.8-1.0); MONOCYTES % (AUTO) 13.5 % (1.7-9.3); NEUTROPHILS # (AUTO) 4.4 K/uL (1.8-7.7); NEUTROPHILS % (AUTO) 67.9 % (42.2-75.2); PLATELET COUNT (AUTO) 155 K/uL (140-450); RED BLOOD CELL COUNT(AUTO) 2.92 MIL/uL (4.20-6.10); RED CELL DISTRIBUTION WIDTH 14.6 % (11.6-13.7); WHITE BLOOD COUNT (AUTO) 6.4 K/uL (4.8-10.8)
--- NOTE | 2020-07-17 07:20 | NUR ---
ENDORSED PT IN STABLE CONDITION TO DAY RN FOR CONTINUITY OF CARE
--- NOTE | 2020-07-17 07:21 | NUR ---
RECEIVED ENDORSEMENT CHIEF OF SURGERY NURSE, ASLEEP ON BED, BREATHING SPONTANEOUSLY AT ROOM, NOT IN DISTRESS NOTED. FOR DISCHARGE TODAY AWAITING FOR TRANSPORT.
[2020-07-17 07:30] LABS: ANION GAP 14.6 (8-16); CARBON DIOXIDE 21.3 mmol/L (21-32); CHLORIDE 106 mmol/L (98-107); CREATININE 1.5 mg/dL (0.6-1.3); GLUCOSE 91 mg/dL (74-106); POTASSIUM 4.9 mmol/L (3.5-5.1); SODIUM SERUM 137 mmol/L (136-145); UREA NITROGEN, BLOOD 18 mg/dL (7-18)
[2020-07-17 08:20] LABS: MAGNESIUM 2.2 mg/dL (1.8-2.4); PHOSPHORUS 3.4 mg/dL (2.5-4.9)
[2020-07-17] MEDS: LACTULOSE 20 GM/30 ML UDC PO SCH (09:02)
[2020-07-17] MEDS: LACTOBACILLUS RHAMNOSUS GG 1 EACH CAP PO SCH (09:02)
[2020-07-17] MEDS: GABAPENTIN 100 MG CAP PO SCH (09:03)
[2020-07-17] MEDS: CARBIDOPA/LEVODOPA 25/100 MG 1 TAB PO SCH (09:03)
[2020-07-17] MEDS: FERROUS SULFATE 325 MG TABEC PO SCH (09:03)
[2020-07-17] MEDS: VIT-B COMP/VIT-C/FOLIC ACID 1 TAB PO SCH (09:03)
[2020-07-17] MEDS: CYANOCOBALAMIN 1,000 MCG TAB PO SCH (09:04)
[2020-07-17] MEDS: CALCIUM CARBONATE 500 MG TAB.CHEW PO SCH (09:04)
[2020-07-17] MEDS: ASCORBIC ACID 500 MG TAB PO SCH (09:04)
[2020-07-17] MEDS: SELEGILINE 5 MG TAB PO SCH (09:07)
[2020-07-17] MEDS: HYDROCOLLOID DRESSING TP SCH (09:26)
--- NOTE | 2020-07-17 09:27 | NUR ---
PUREE DIET SERVE, FEEDING ASSISTED WITH GOOD SWALLOWING NOTED. DUE MEDICATION GIVEN WITH APPLE SAUCE. TOLERATED WELL
--- NOTE | 2020-07-17 09:52 | NUR ---
FULLY AWAKE, PHYSICAL THERAPIST DOING THE EXERCISES.
--- NOTE | 2020-07-17 10:13 | NUR ---
FACULTY I ON CALL MEDICAL ASSISTANT NOTE: Patient's Orientation Unable To Assess Information Provided By KARISHMA ACEVEDOZ - SON Comments SW WAS UNABLE TO MEET PATIENT AT BEDSIDE. SW CONTACTED PATIENT'S SON, KARISHMA MICHAEL TO VERIFY DEMOGRAPHICS. PER KARISHMA, ALL OF PATIENT'S NEEDS ARE BEING MET AT [facility]. Sanding Machine Buffer, Realtionship and Phone Number KARISHMA CARRASQUILLO [phone] Healthcare Power of [employer] Lead No Does Patient Have a POLST No Identifying Problems No Social Work Triggers Is A Social Work Consult Needed No Mandate Report Filed No Explanation Of Identifying Problems PATIENT IS AN 80-YEAR-OLD MALE ADMITTED FOR HYPERKALEMIA AND GENERALIZED WEAKNESS. PATIENT HAS PMHX OF PARKINSON'S DISEASE, DEMENTIA, AND HYPERTENSION. Admitted From Care Home Facility Care Home Facility [facility] - [phone] Pre-Admission Level Of Functioning Status Total Care Prior Resources/Services Used In Last 12 Months SNF Alf Care Prior DME Wheelchair Patient Had Caregiver No Home Support No Caregiver Issues Financial Issues No Known Financial Issue Referral To The Financial Counselor Needed No Factors/Needs SNF/NH Placement Explanation And Or Other Factors Affecting/Possible DC Needs PER PATIENT'S SON, PATIENT IS FCI AND ON A BED HOLD. Pt/Rep Participated In Discharge Plan Yes Patient/Family Agress With Discharge Plan Yes Discharge Plan Comments TENTATIVE DISCHARGE PLAN IS FOR PATIENT TO RETURN HOME. DC Plan Status Initiated
--- NOTE | 2020-07-17 10:50 | NUR ---
IV CANNULA REMOVED AND PREPARED FOR DISCHARGE, GOWN CHANGED. FOR DIRECTOR MERIT SYSTEM AFTER 15 MINUTES.
--- NOTE | 2020-07-17 11:10 | NUR ---
DISCHARGED IN STABLE CONDITION PER STRETCHER ACCOMPANIED TRANSPORT PERSONNEL TO [facility]. BREATHING SPONTANEOUSLY AT ROOM AIR, DISCHARGED PACKET INSTRUCTION GIVEN AND FULLY INSTRUCTED. ID BAND REMOVED AND PROPERLY DISPOSED.
== END 2020-07-17 11:10 | DRG 70 ==
LOC: MED 19:36 → MTU 21:47
PROVIDERS: ADMIT Family Medicine; ATTEND Family Medicine
DX: G93.41 Metabolic encephalopathy (principal); N17.0 Acute kidney failure with tubular necrosis; E43 Unspecified severe protein-calorie malnutrition; Z68.1 Body mass index [BMI] 19.9 or less, adult; E87.5 Hyperkalemia; G20 Parkinson's disease; I12.9 Hypertensive chronic kidney disease with stage 1 through stage 4 chronic kidney disease, or unspecified chronic kidney disease; N18.3 Chronic kidney disease, stage 3 (moderate); E83.42 Hypomagnesemia; E87.8 Other disorders of electrolyte and fluid balance, not elsewhere classified; S31.010A Laceration without foreign body of lower back and pelvis without penetration into retroperitoneum, initial encounter; E16.2 Hypoglycemia, unspecified; X58.XXXA Exposure to other specified factors, initial encounter; F02.80 Dementia in other diseases classified elsewhere, unspecified severity, without behavioral disturbance, psychotic disturbance, mood disturbance, and anxiety; I10 Essential (primary) hypertension; G90.9 Disorder of the autonomic nervous system, unspecified; Z20.828 Contact with and (suspected) exposure to other viral communicable diseases; D64.9 Anemia, unspecified; Z86.19 Personal history of other infectious and parasitic diseases; Z88.6 Allergy status to analgesic agent; Z79.899 Other long term (current) drug therapy; Y93.9 Activity, unspecified; Y92.89 Other specified places as the place of occurrence of the external cause; Y99.8 Other external cause status
CPT/HCPCS: 36415; 70450; 71045; 76770; 80048; 80053; 81003; 82150; 82948; 83036; 83540; 83605; 83690; 83735; 83880; 84100; 84439; 84443; 84484; 85025; 85610; 85730; 87040; 87081; 87086; 87186; 93005; 96365; 96372; 96375; 97110; 97112; 97116; 97161-GP; 97530; 99285; J0610; J0696; J0885; J1815; J2270; J3420; J3475; J7042; J7060; Q0092

== ENCOUNTER 2020-09-13 14:34 | Inpatient (IN) | payer OTHER, MEDICAID ==
[~2020-09-13] VITALS: Ht 172.7 cm; Wt 74.8 kg
[~2020-09-13 14:34] MED LIST: ASCO500T95 PO; BISA-28 PO; CALC500C17 PO; CARB1TAB8 PO; CEPH250C16 PO; CYAN-11 PO; FERR-212 PO; GABA100C PO; LACT10SO1 PO; MAGN400S60 PO; MULT-1469 PO; PIMA34CA PO; RASA1TAB PO; SODI15SU PO
--- NOTE | 2020-09-13 14:34 | NUR ---
PATIENT JOSUÉ BLS TO ER BED 02 Addendum: 09/13/20 at 1442 by MEDWB PATIENT JOSUÉ ALS TO ER BED 02
[2020-09-13 14:36] VITALS: BP 95/42
--- NOTE | 2020-09-13 14:40 | NUR ---
PT BIBA FROM [facility] FOR LOW HGB 6.3 THAT WAS DONE ON 09/12/2020. PT PRESENTS WITH POLAR SKIN, CAP REFILLS >3 S ON JOE FINGERNAILS, AND O2 SATS 88% ON RA UPON TRIAGE. PT IS A&OX2 HIS BASE LINE PER EMS. PT DENIES ANY CP, SOB, OR COUGH AT THIS TIME. PATIENT'S PAIN IS 4/10 ON FLACC SCALE AT THIS TIME; VSS; PATIENT POSITIONED FOR COMFORT; HOB ELEVATED; BEDRAILS UP X2; BED DOWN. ER MD MADE AWARE OF PT STATUS.
[2020-09-13] MEDS ORDERED: [UNRECOGNIZED DRUG - CODE] PO (14:58)
[2020-09-13] MEDS ORDERED: DOCU-299 PO (14:58)
[2020-09-13 15:12] LABS: BASOPHILS % (AUTO) 0.5 % (0.0-2.0); EOSINOPHILS # (AUTO) 0.5 K/uL (0-0.4); EOSINOPHILS % (AUTO) 5.6 % (0.0-4.0); LYMPHOCYTES # (AUTO) 0.9 K/uL (2.0-11.5); LYMPHOCYTES % (AUTO) 9.4 % (20.5-51.1); MEAN CORPUSCULAR HEMOGLOBIN 29 pg (27-31); MEAN CORPUSCULAR HGB CONC 33 g/dL (33-37); MEAN CORPUSCULAR VOLUME 89.4 fL (80-94); MONOCYTES # (AUTO) 0.7 K/uL (0.8-1.0); NEUTROPHILS # (AUTO) 7.5 K/uL (1.8-7.7); NEUTROPHILS % (AUTO) 77.5 % (42.2-75.2); PLATELET COUNT (AUTO) 313 K/uL (140-450); RED BLOOD CELL COUNT(AUTO) 2.14 MIL/uL (4.20-6.10); RED CELL DISTRIBUTION WIDTH 16.3 % (11.6-13.7); WHITE BLOOD COUNT (AUTO) 9.7 K/uL (4.8-10.8)
[2020-09-13 15:14] LABS: HEMATOCRIT 19.1 % (36-52); HEMOGLOBIN 6.2 g/dL (12.0-18.0)
[2020-09-13] MEDS ORDERED: KAY15 PO (15:17)
[2020-09-13] MEDS ORDERED: BISA-218 RC (15:17)
[2020-09-13] MEDS ORDERED: ZINC220C28 PO (15:17)
[2020-09-13] MEDS ORDERED: ONDA4TAB PO (15:17)
[2020-09-13] MEDS ORDERED: ACET-2619 PO (15:17)
[2020-09-13] MEDS ORDERED: NA P135N RC (15:17)
[2020-09-13] MEDS ORDERED: VITA-16 PO (15:17)
[2020-09-13] MEDS ORDERED: METO25TA PO (15:17)
[2020-09-13] MEDS ORDERED: SYN.05 PO (15:17)
[2020-09-13] MEDS ORDERED: HYDR-5122 PO (15:17)
--- NOTE | 2020-09-13 15:19 | NUR ---
XRAY IS AT BEDSIDE.
[2020-09-13 15:26] LABS: ANION GAP 13.5 (8-16); ASPARTATE AMINOTRANSFERASE 18 U/L (15-37); CHLORIDE 107 mmol/L (98-107); CREATININE 2.7 mg/dL (0.6-1.3); GLUCOSE 107 mg/dL (74-106); POTASSIUM 3.5 mmol/L (3.5-5.1); SODIUM SERUM 140 mmol/L (136-145); TOTAL BILIRUBIN 0.3 mg/dL (0.0-1.0); UREA NITROGEN, BLOOD 50 mg/dL (7-18)
[2020-09-13 15:28] LABS: PROTHROMBIN TIME 10.9 secs (10.8-13.4)
[2020-09-13 15:59] LABS: APPEARANCE,URINE CLOUDY (CLEAR); BILIRUBIN,URINE NEGATIVE (NEGATIVE); BLOOD, URINE TRACE-I (NEGATIVE); COLOR,URINE YELLOW (YELLOW); LEUKOCYTE ESTERASE ,URINE 2+ (NEGATIVE); NITRITE, URINE NEGATIVE (NEGATIVE); UGLUCOSE NEGATIVE (NEGATIVE)
[2020-09-13 16:08] LABS: WBC,URINE 80-100 /HPF (0-5)
--- NOTE | 2020-09-13 16:09 | NUR ---
BLOOD TRANSFUSION CONSENT OBTAINED VIA PHONE CALL FROM MAGALYS MICHAEL AND CO-SIGNED BY STEPHANIA. Addendum: 09/13/20 at 1652 by MED MAGALYS STATED HE IS THE PERSON WHO MAKES MEDICAL DECISIONS FOR LYDIA MICHAEL.
[2020-09-13] MEDS ORDERED: cefTRIAXone 1,000 MG VIAL ONE (16:34)
[2020-09-13] MEDS ORDERED: ACETAMINOPHEN 325 MG TAB PO PRN ×2 (17:00→17:15)
[2020-09-13] MEDS ORDERED: NACL 0.9% 1,000 ML IV SCH (17:00)
[2020-09-13] MEDS ORDERED: POTASSIUM CHLORIDE 10 MEQ TABER PO PRN ×2 (17:00→17:15)
[2020-09-13] MEDS ORDERED: DOCUSATE SODIUM 100 MG GELCAP PO PRN ×3 (17:00→17:20)
[2020-09-13] MEDS ORDERED: HYDROcodone/APAP 7.5/325 MG 1 TAB PO PRN ×2 (17:00→17:15)
[2020-09-13] MEDS ORDERED: ONDANSETRON 4 MG/2 ML VIAL IM/IVP PRN ×2 (17:00→17:15)
[2020-09-13] MEDS ORDERED: MAGNESIUM HYDROXIDE 2400 MG/30 ML UDC PO PRN (17:20)
[2020-09-13] MEDS ORDERED: bisacodyL 10 MG SUPP RC PRN (17:20)
--- NOTE | 2020-09-13 17:20 | NUR ---
Patient will be admitted to care of severe anemia. Admited to TELE. Will go to room 108b. Belongings list completed. Report to MILADIS Wilkes. 1 unit of red blood cell is ready to be picked up in the lab. Endorsed to Katrin REDDING of [facility].
--- NOTE | 2020-09-13 17:20 | NUR ---
RECEIVED REPORT FROM ER NURSE KENTRELL FOR CONTINUITY OF CARE. PATIENT AAOX2. WITH OCCASIONAL CONFUSION, R/T HX OF DEMENTIA. RESPIRATORY EVEN AND UNLABORED, O2 SAT 98% WITH 2L NC. SKIN WARM AND DRY, SACRAL STAGE 2 PRESSURE ULCER NOTED. IV SITE LEFT FOREARM 18G. BEDREST, PATIENT DENIES PAIN OR DISCOMFORT AT THIS TIME. DX WITH SEVERE ANEMIA. MRSA NARES COLLECTED. SAFETY MEASURES IN PLACE, WILL CONTINUE TO MONITOR.
[2020-09-13 17:44] LABS: CHOL/HDL RATIO 3.6 (1-4.5); FREE T4 (FREE THYROXINE) 1.16 ng/dL (0.76-1.46); MAGNESIUM 1.9 mg/dL (1.8-2.4); THYROID STIMULATING HORMONE 3.04 uIU/mL (0.34-3.74)
[2020-09-13] MEDS: NACL 0.9% 1,000 ML IV SCH (18:00)
--- NOTE | 2020-09-13 18:25 | NUR ---
FED PATIENT, TAKEN 80% OF DINNER. PATIENT DENIES PAIN OR DISCOMFORT. SAFETY MEASURES IN PLACE, WILL CONTINUE TO MONITOR.
--- NOTE | 2020-09-13 19:15 | NUR ---
ENDORSED PATIENT TO CARPET WINDER RN FOR CONTINUITY OF CARE. VS STABLE.
--- NOTE | 2020-09-13 19:25 | NUR ---
RECEIVED BEDSIDE REPORT FROM DAY SHIFT NURSE FOR CONTINUITY OF CARE. PT IS AWAKE AND SPEAKING APPROPRIATELY. ON 2L O2 NC WITH BREATHING UNLABORED. PT IS BRADYCARDIA ON TELE MONITORING. PT IS ON BEDREST WITH DRY CHUCKS IN PLACE. SKIN IS WARM AND DRY. SKIN IS NOT INTACT, SACRAL WOUND WITH OPTIFOAM IN PLACE. IV IS IN THE LEFT FOREARM 18 GAUGE RUNNING NS AT 60 ML PER HOUR PER ORDER. H&H IS BELOW NORMAL VALUES AND BLOOD TRANSFUSION PENDING. BLOOD IS NOW READY AND WILL BE TRANSFUSED SHORTLY. PLAN OF CARE DISCUSSED. BED IS IN THE LOWEST POSITION AND CALL LIGHT IS WITHIN REACH. FALL PRECAUTIONS IN PLACE. PT IS STABLE.
[2020-09-13 20:00] VITALS: BP 131/68
--- NOTE | 2020-09-13 20:15 | NUR ---
BLOOD TRANSFUSION WAS STARTED. VS ARE STABLE. WILL CONTINUE TO MONITOR CLOSELY FOR ANY ADVERSE REACTIONS. PT WAS GIVEN EDUCATION ON WHY HE IS RECEIVING A BLOOD TRANSFUSION AND HIS SON CONSENTED TO THE PROCEDURE. Addendum: 09/13/20 at 223 by Julissa Andrade RN BLOOD TRANSFUSION WAS STARTED AT 2214
--- NOTE | 2020-09-13 21:00 | NUR ---
PT WAS CHANGED AND REPOSITIONED. WOUND DRESSING WAS DRY AND INTACT ON THE SACRAL AREA. NO DRAINAGE ON THE DRESSING. PT WAS PLACED ON THE RIGHT LATERAL POSITION. PILLOW WAS PLACED BETWEEN KNEES TO PREVENT RUBBING AND BREAKDOWN. PT ONLY VOIDED. WILL COLLECT STOOL SAMPLE WHEN PT HAS A BM.
[2020-09-13] MEDS: CALCIUM CARB 600 MG TAB PO SCH (21:46)
[2020-09-13] MEDS: CARBIDOPA/LEVODOPA 25/100 MG 1 TAB PO SCH (21:46)
[2020-09-13] MEDS: FERROUS SULFATE 325 MG TABEC PO SCH (21:47)
--- NOTE | 2020-09-13 22:15 | NUR ---
BLOOD TRANSFUSION WAS STARTED. CONSENT WAS SIGNED BY ER NURSE FROM SON. TUBING WAS PRIMED AND CLAMPED WITH NS AND BLOOD IS INFUSING. VS ARE STABLE. WILL MONITOR FOR ADVERSE REACTIONS. TRANSFUSION WAS EXPLAINED TO PT AND ADVERSE REACTIONS WERE ALSO EXPLAINED. PT VERBALIZED UNDERSTANDING.
--- NOTE | 2020-09-13 23:00 | NUR ---
PT WAS CHANGED AND REPOSITIONED. SOILED LINENS WERE REMOVED AND PT ONLY VOIDED. BM STILL HASN'T BEEN COLLECTED. SCD'S ARE IN PLACE AND IV IS INTACT WITH THE BLOOD TRANSFUSION RUNNING. NO ADVERSE REACTIONS AND VS AT STABLE.
[2020-09-14] VITALS: BP 138/74
--- NOTE | 2020-09-14 01:00 | NUR ---
PT WAS TURNED Q 2H ORDERED. PT'S WOUND WAS ASSESSED AND SOILED DRESSING WAS CHANGED. WOUND WAS CLEANSED WITH NS AND PATTED DRY. PT TOLERATED THE CHANGING WELL. PT WAS REPOSITIONED ON THE LEFT LATERAL SIDE. SCD'S ARE IN PLACE. FALL PRECAUTIONS ARE IN ORDER AND BED IS IN THE LOWEST POSITION WITH BED ALARM ON. BLOOD TRANSFUSION IS STILL RUNNING, NO DISTRESS NOTED.
[2020-09-14] MEDS: CARBIDOPA/LEVODOPA 25/100 MG 1 TAB PO SCH ×5 (01:23→17:12)
--- NOTE | 2020-09-14 02:00 | NUR ---
BLOOD TRANSFUSION IS FINISHED AND TUBING WAS REMOVED. NS IS NOW RUNNING AT 60 ML PER HOUR PER ORDER. PT TOLERATED THE TRANSFUSION WELL. NO SIGNS OF DISTRESS AND BREATHING IS UNLABORED. BP IS 113/61, HR IS 78, TEMP IS 97.7, O2 SAT IS 90%, FLACC 0. BED IS IN LOWEST POSITION AND CALL LIGHT IS WITHIN REACH.
--- NOTE | 2020-09-14 03:51 | NUR ---
PT IS ASLEEP. NO DISTRESS OR PAIN AT THIS TIME. FLACC 0. IV IS PATENT AND INFUSING NS. CALL LIGHT IS WITHIN REACH.
[2020-09-14 04:00] VITALS: BP 126/67
--- NOTE | 2020-09-14 05:50 | NUR ---
PT WAS GIVEN APPLESAUCE AND MILK FOR A SNACK. BLANKETS WERE PLACED ON TOP OF PT BECAUSE HE WAS COLD. SCD'S ARE IN PLACE. IV FLUIDS ARE RUNNING. NEEDS HAVE BEEN MET. BED ALARM IS ON.
[2020-09-14 06:21] LABS: ANION GAP 13.4 (8-16); CARBON DIOXIDE 21.5 mmol/L (21-32); CHLORIDE 108 mmol/L (98-107); CREATININE 2.3 mg/dL (0.6-1.3); GLUCOSE 96 mg/dL (74-106); POTASSIUM 3.9 mmol/L (3.5-5.1); SODIUM SERUM 139 mmol/L (136-145); UREA NITROGEN, BLOOD 50 mg/dL (7-18)
[2020-09-14 06:36] LABS: MAGNESIUM 1.9 mg/dL (1.8-2.4); PHOSPHORUS 3.7 mg/dL (2.5-4.9)
[2020-09-14] MEDS: LEVOTHYROXINE 0.05 MG TAB PO SCH (06:46)
--- NOTE | 2020-09-14 07:15 | NUR ---
RECEIVED PATIENT FROM NIGHT NURSE. PATIENT IS IN BED AWAKE, ALERT AND RESPONSIVE TO STAFF, ORIENTED X3. RESP EVEN AND UNLABORED ON ROOM AIR. DENIES OF PAIN AT THIS TIME. PATIENT IS ABLE TO FOLLOW COMMANDS AND ABLE TO MAKE NEEDS KNOWN. PLAN OF CARE DISCUSSED WITH PATIENT. PATIENT VERBALIZED UNDERSTANDING. LFA 18G INFUSING NS 60ML/HR. CALL LIGHT WITHIN REACH. WILL CONTINUE TO MONITOR.
--- NOTE | 2020-09-14 07:15 | NUR ---
ENDORSED PT TO DAY SHIFT NURSE FOR CONTINUITY OF CARE. PT IS AWAKE AND STABLE AT THIS TIME. IV IS INFUSING AND PATENT. PLAN OF CARE DISCUSSED.
[2020-09-14 08:00] VITALS: BP 120/56
[2020-09-14 08:03] LABS: BASOPHILS % (AUTO) 0.5 % (0.0-2.0); EOSINOPHILS # (AUTO) 0.2 K/uL (0-0.4); EOSINOPHILS % (AUTO) 3.1 % (0.0-4.0); LYMPHOCYTES % (AUTO) 12.2 % (20.5-51.1); MEAN CORPUSCULAR HEMOGLOBIN 29 pg (27-31); MEAN CORPUSCULAR HGB CONC 32 g/dL (33-37); MEAN CORPUSCULAR VOLUME 88.1 fL (80-94); MONOCYTES # (AUTO) 0.5 K/uL (0.8-1.0); MONOCYTES % (AUTO) 6.5 % (1.7-9.3); NEUTROPHILS # (AUTO) 6.2 K/uL (1.8-7.7); NEUTROPHILS % (AUTO) 77.7 % (42.2-75.2); PLATELET COUNT (AUTO) 306 K/uL (140-450); RED BLOOD CELL COUNT(AUTO) 2.24 MIL/uL (4.20-6.10); RED CELL DISTRIBUTION WIDTH 16.2 % (11.6-13.7); WHITE BLOOD COUNT (AUTO) 7.9 K/uL (4.8-10.8)
[2020-09-14 08:12] LABS: HEMATOCRIT 19.7 % (36-52); HEMOGLOBIN 6.4 g/dL (12.0-18.0)
--- NOTE | 2020-09-14 08:51 | NUR ---
PATIENT HAS BEEN SCREENED AND CATEGORIZED HIGH NUTRITION RISK. PATIENT WILL BE SEEN WITHIN 1-2 DAYS OF ADMISSION. 09/14/20-09/15/[address]
[2020-09-14] MEDS ORDERED: CYANOCOBALAMIN PO SCH (09:00)
[2020-09-14] MEDS ORDERED: NON-FORMULARY ITEM (Cholecalciferol (Vitamin D3) (Vitamin D3) 50 MCG) PO SCH (09:00)
[2020-09-14] MEDS ORDERED: METOPROLOL 25 MG TAB PO SCH (09:00)
[2020-09-14 09:06] LABS: T4 (THYROXINE) 6.1 ug/dL (4.5-12.0)
--- NOTE | 2020-09-14 09:11 | NUR ---
CALL PLACE TO [facility] TALKED TO DENIS, ASKING FOR MED NUPLAZID 34 MG AND AZILECT 1 TAB NOT AVAILABLE IN THE PHARMACY, PER DENIS SHE WILL CALL US BACK, SHE NEED TO ASK HER LAMINATOR HAND.
[2020-09-14] MEDS: EPOETIN ALFA 2,000 UNITS/ML VIAL IV SCH (09:25)
[2020-09-14] MEDS: CHOLECALCIFEROL 1,000 IU TAB PO SCH (09:26)
[2020-09-14] MEDS: VIT-B COMP/VIT-C/FOLIC ACID 1 TAB PO SCH (09:26)
[2020-09-14] MEDS: CYANOCOBALAMIN 1,000 MCG TAB PO SCH (09:26)
[2020-09-14] MEDS: ASCORBIC ACID 500 MG TAB PO SCH (09:27)
[2020-09-14] MEDS: FERROUS SULFATE 325 MG TABEC PO SCH (09:28)
[2020-09-14] MEDS: ZINC SULF 220 MG CAP PO SCH (09:28)
[2020-09-14] MEDS: CALCIUM CARB 600 MG TAB PO SCH ×2 (09:29→21:30)
[2020-09-14] MEDS: GABAPENTIN 100 MG CAP PO SCH ×3 (09:29→17:12)
--- NOTE | 2020-09-14 09:43 | NUR ---
MORNING ROUTINE MEDICATIONS GIVEN. PATIENT TOLERATED WELL WITH APPLESAUCE. LUNGS CLEAR. PT AT BEDSIDE. PATIENT IS PLEASANT AND ABLE TO FOLLOW COMMANDS. ABLE TO MAKE NEEDS KNOWN. LFA 18G INFUSING WELL. RESP EVEN AND UNLABORED ON ROOM AIR. DENIES OF PAIN AT THIS TIME. SKIN IS WARM TO TOUCH. WILL PROVIDE WOUND CARE PER ORDER. CALL LIGHT WITHIN REACH. WILL CONTINUE TO MONITOR.
[2020-09-14] MEDS: NACL 0.9% 1,000 ML IV SCH (09:55)
[2020-09-14] MEDS ORDERED: SODIUM FERRIC GLUCONATE 125 MG in NACL 0.9% 100 ML IV SCH (10:00)
--- NOTE | 2020-09-14 11:13 | NUR ---
SOCIAL WORK NOTE: Patient's Orientation Unable To Assess Information Provided By MAGALYS MICHAEL - SON Comments SW WAS UNABLE TO MEET PATIENT AT BEDSIDE. SW CONTACTED PATIENT'S SON MAGALYS MICHAEL TO COMPLETE ASSESSMENT. Landing Support Specialist, Realtionship and Phone Number MAGALYS MICHAEL SON/HEALTHCARE DECISION MAKER [phone] KARISHMA CARRASQUILLO [phone] Healthcare Power of Motorcycle Police No Does Patient Have a POLST No Identifying Problems No Social Work Triggers Is A Social Work Consult Needed No Mandate Report Filed No Explanation Of Identifying Problems PATIENT IS A 80-YEAR-OLD MALE ADMITTED FOR SEVERE ANEMIA. PATIENT HAS PMHX OF DEMENTIA, GERD, AND HYPERTENSION. Admitted From Prison Facility Prison Facility [facility] [phone] Pre-Admission Level Of Functioning Status Total Care Level Of Functioning Comment PER PATIENT'S SON, PATIENT IS BED-BOUND AND SOMETIMES USES A WHEELCHAIR. Prior Resources/Services Used In Last 12 Months SNF Group Home Care Prior Resources/Service Comments PER SON, PATIENT IS INTERMEDIATE AND ON A BED HOLD. Prior DME Wheelchair Dialysis Comments PER PATIENT'S SON, PATIENT DOES NOT RECEIVE DIALYSIS. Patient Had Caregiver No Home Support No Caregiver Issues Financial Issues No Known Financial Issue Referral To The Financial Counselor Needed No Factors/Needs No D/C Needs Identified Pt/Rep Participated In Discharge Plan Yes Patient/Family Agress With Discharge Plan Yes Discharge Plan Comments TENTATIVE DISCHARGE PLAN IS FOR PATIENT TO RETURN TO [facility] Plan Status Initiated
--- NOTE | 2020-09-14 11:15 | NUR ---
SOCIAL WORK NOTE: Patient's Orientation Unable To Assess Information Provided By MAGALYS MICHAEL - SON Comments SW WAS UNABLE TO MEET PATIENT AT BEDSIDE. SW CONTACTED PATIENT'S SON MAGALYS MICHAEL TO COMPLETE ASSESSMENT. Hand Crown Pouncer, Realtionship and Phone Number MAGALYS MICHAEL SON/HEALTHCARE DECISION MAKER [phone] KARISHMA CARRASQUILLO [phone] Healthcare Power of Bank Teller Machine Mechanic No Does Patient Have a POLST No Identifying Problems No Social Work Triggers Is A Social Work Consult Needed No Mandate Report Filed No Explanation Of Identifying Problems PATIENT IS A 80-YEAR-OLD MALE ADMITTED FOR SEVERE ANEMIA. PATIENT HAS PMHX OF DEMENTIA, GERD, AND HYPERTENSION. Admitted From [facility]pc Facility Fpc Facility [facility] [phone] Pre-Admission Level Of Functioning Status Total Care Level Of Functioning Comment PER PATIENT'S SON, PATIENT IS BED-BOUND AND SOMETIMES USES A WHEELCHAIR. Prior Resources/Services Used In Last 12 Months SNF Care Home Care Prior Resources/Service Comments PER SON, PATIENT IS USP AND ON A BED HOLD. Prior DME Wheelchair Dialysis Comments PER PATIENT'S SON, PATIENT DOES NOT RECEIVE DIALYSIS. Patient Had Caregiver No Home Support No Caregiver Issues Financial Issues No Known Financial Issue Referral To The Financial Counselor Needed No Factors/Needs No D/C Needs Identified Pt/Rep Participated In Discharge Plan Yes Patient/Family Agress With Discharge Plan Yes Discharge Plan Comments TENTATIVE DISCHARGE PLAN IS FOR PATIENT TO RETURN TO [facility] Plan Status Initiated
--- NOTE | 2020-09-14 11:26 | NUR ---
SHAKIR FROM [facility] DROPPED OFF PATIENT MEDICATIONS OF AZILECT AND NUPLAZID. COUNTS VERIFIED. MEDICATIONS GIVEN TO [facility] PHARMACIST.
[2020-09-14] MEDS ORDERED: PIMAVANSERIN TARTRATE 34 MG PO SCH (11:46)
[2020-09-14] MEDS ORDERED: RASAGILINE MESYLATE PO SCH (11:49)
[2020-09-14 12:00] VITALS: BP 106/61
--- NOTE | 2020-09-14 13:00 | NUR ---
BLOOD TRANSFUSION STARTED. VITALS ARE STABLE. WILL MONITOR CLOSELY FOR ADVERSE REACTION. PATIENT VERBALIZED UNDERSTANDING OF BLOOD TRANSFUSION. WILL CONTINUE TO MONITOR.
--- NOTE | 2020-09-14 14:50 | NUR ---
09/14/20 RD INITIAL ASSESSMENT COMPLETED PLEASE REFER TO NUTRITION ASSESSMENT UNDER CARE ACTIVITY FOR ESTIMATED NUTRITIONAL NEEDS. 1. CONTINUE PUREE DIET TOLERATED 2. RECOMMEND ENSURE BID 3. CONTINUE VITAMIN C AND ZINC SUPPLEMENTATION FOR WOUND HEALING 4. RD TO FOLLOW-UP 3-5 DAYS, MODERATE RISK MICHAEL LÓPEZ RD
--- NOTE | 2020-09-14 14:58 | NUR ---
BLOOD TRANSFUSION IS IN PROGRESS. VITALS WNL. NO NOTED REACTION AT THIS TIME. PATIENT EXHIBITS A LOT OF INVOLUNTARY MOVEMENTS D/T HX PARKINSONS. PATIENT ABLE TO FOLLOW COMMANDS AND MAKE NEEDS KNOWN. PATIENT REPOSITIONED AND TURNED. CALL LIGHT WITHIN REACH. WILL CONTINUE TO MONITOR.
[2020-09-14 16:00] VITALS: BP 126/66
[2020-09-14] MEDS: DEXT 5% / NACL 0.45% 1,000 ML IV SCH (17:11)
--- NOTE | 2020-09-14 17:15 | NUR ---
BLOOD TRANSFUSION COMPLETE. PATIENT IN STABLE CONDITION. NO NOTED REACTION AT THIS TIME. VITALS WNL. ROUTINE MEDICATIONS CARRIED OUT. PATIENT REPOSITIONED AND TURNED. RESP EVEN AND UNLABORED ON ROOM AIR. PATIENT IS COMFORTABLE IN BED. CALL LIGHT WITHIN REACH. WILL CONTINUE TO MONITOR.
--- NOTE | 2020-09-14 17:59 | NUR ---
BLADDER SCAN DONE, RESIDUAL > 750 ML. RAYMOND CATH WILL BE INSERTED. Addendum: 09/14/20 at 1800 by Kathe Monsivais RN PER DR BAKER
--- NOTE | 2020-09-14 18:17 | NUR ---
RAYMOND CATHETER INSERTED, 16FR USING STERILE TECHNIQUE. PATIENT TOLERATED WELL. URINE SPECIMEN COLLECTED AND SENT TO LAB. 800 ML CLOUDY YELLOW URINE EMPTY FROM RAYMOND BAG.
[2020-09-14 18:46] LABS: APPEARANCE,URINE CLOUDY (CLEAR); BILIRUBIN,URINE NEGATIVE (NEGATIVE); BLOOD, URINE 1+ (NEGATIVE); COLOR,URINE YELLOW (YELLOW); LEUKOCYTE ESTERASE ,URINE 1+ (NEGATIVE); NITRITE, URINE NEGATIVE (NEGATIVE); UGLUCOSE NEGATIVE (NEGATIVE)
--- NOTE | 2020-09-14 19:25 | NUR ---
ENDORSED PATIENT TO NIGHT NURSE. PATIENT IN STABLE CONDITION.
--- NOTE | 2020-09-14 19:26 | NUR ---
RECEIVED BEDSIDE ENDORSEMENT FROM AM SHIFT RN. PATIENT LYING IN BED, NO SOB, ON ROOM AIR, LFA 18 G, INTACT, INFUSING IVF, WITH SACRAL WOUND PER ENDORSEMENT, DRESSING DRY AND INTACT, SAFETY MEASURES IN PLACE, FALL PROTOCOL IN PLACE, CALL LIGHT WITHIN REACH. Addendum: 09/14/20 at 5 by Whit Peña RN WITH MANDI YBARRA IN PLACE TODAY IN AM 09/14/2020
[2020-09-14 19:53] LABS: WBC,URINE 16-25 (MOD) /HPF (0-5)
[2020-09-14 20:00] VITALS: BP 126/65
[2020-09-14] MEDS: LACTULOSE 20 GM/30 ML UDC PO SCH (21:30)
[2020-09-14 21:34] LABS: BASOPHILS % (AUTO) 0.5 % (0.0-2.0); EOSINOPHILS # (AUTO) 0.3 K/uL (0-0.4); EOSINOPHILS % (AUTO) 3.6 % (0.0-4.0); HEMOGLOBIN 8.8 g/dL (12.0-18.0); LYMPHOCYTES # (AUTO) 0.9 K/uL (2.0-11.5); LYMPHOCYTES % (AUTO) 10.3 % (20.5-51.1); MEAN CORPUSCULAR HEMOGLOBIN 29 pg (27-31); MEAN CORPUSCULAR HGB CONC 32 g/dL (33-37); MEAN CORPUSCULAR VOLUME 88.2 fL (80-94); MONOCYTES # (AUTO) 0.6 K/uL (0.8-1.0); MONOCYTES % (AUTO) 7.4 % (1.7-9.3); NEUTROPHILS # (AUTO) 6.5 K/uL (1.8-7.7); NEUTROPHILS % (AUTO) 78.2 % (42.2-75.2); PLATELET COUNT (AUTO) 331 K/uL (140-450); RED BLOOD CELL COUNT(AUTO) 3.06 MIL/uL (4.20-6.10); WHITE BLOOD COUNT (AUTO) 8.4 K/uL (4.8-10.8)
--- NOTE | 2020-09-14 21:37 | NUR ---
due meds given as ordered, tolerated well.
--- NOTE | 2020-09-14 23:30 | NUR ---
JULEE CARE RENDERED, REPOSITIONED, KEPT WARM & COMFORTABLE, NO SOB, CALL LIGHT WITHIN REACH.
[2020-09-15] VITALS: BP 118/63
--- NOTE | 2020-09-15 02:12 | NUR ---
PATIENT IS ASLEEP, O2 SAT AT 100% ON RA. WILL MONITOR, CALL LIGHT WITHIN REACH.
[2020-09-15 04:00] VITALS: BP 123/69
[2020-09-15] MEDS: DEXT 5% / NACL 0.45% 1,000 ML IV SCH (04:07)
--- NOTE | 2020-09-15 04:10 | NUR ---
IVF CHANGED, HANGED A NEW IV BAG OF D5 1/2 NS AT 80 CC/HR. IV SITE PATENT, PATIENT IS SLEEPING, NO SOB.
[2020-09-15] MEDS: LEVOTHYROXINE 0.05 MG TAB PO SCH (06:10)
--- NOTE | 2020-09-15 06:19 | NUR ---
SYNTHROID PO GIVEN ORDERED, TOLERATED WELL.
--- NOTE | 2020-09-15 07:19 | NUR ---
RECEIVED REPORT FROM NIGHT NURSE FOR CONTINUITY OF CARE, PT IS STABLE, PT ASLEEP IN BED, RESPIRATIONS ARE EVEN AND UNLABORED ON ROOM AIR, PT HAS LEFT FA 18G INFUSING D51/2NS AT 80 ML/H, PT HAS SACRAL WOUND, PT IS NPO, WILL INTRODUCE SELF, BED IN LOW POSITION, SAFETY MEASURES IN PLACE, CALL LIGHT WITHIN REACH, WILL CONTINUE TO MONITOR.
--- NOTE | 2020-09-15 07:20 | NUR ---
PATIENT IS IN STABLE CONDITION. BEDSIDE ENDORSEMENT GIVEN TO MILADIS MANTILLA FOR CONTINUITY OF CARE.
[2020-09-15 08:00] VITALS: BP 145/70
[2020-09-15] MEDS: CHOLECALCIFEROL 1,000 IU TAB PO SCH (09:12)
[2020-09-15] MEDS: ASCORBIC ACID 500 MG TAB PO SCH (09:13)
[2020-09-15] MEDS: CALCIUM CARB 600 MG TAB PO SCH ×2 (09:13→20:45)
[2020-09-15] MEDS: CYANOCOBALAMIN 1,000 MCG TAB PO SCH (09:14)
[2020-09-15] MEDS: VIT-B COMP/VIT-C/FOLIC ACID 1 TAB PO SCH (09:14)
[2020-09-15] MEDS: GABAPENTIN 100 MG CAP PO SCH ×3 (09:17→20:44)
[2020-09-15] MEDS: LACTULOSE 20 GM/30 ML UDC PO SCH ×2 (09:17→20:44)
[2020-09-15] MEDS: ZINC SULF 220 MG CAP PO SCH (09:17)
[2020-09-15] MEDS: CARBIDOPA/LEVODOPA 25/100 MG 1 TAB PO SCH ×3 (09:17→18:38)
[2020-09-15] MEDS: PIMAVANSERIN TARTRATE 34 MG PO SCH (09:18)
[2020-09-15] MEDS: RASAGILINE MESYLATE PO SCH (09:19)
--- NOTE | 2020-09-15 09:29 | NUR ---
ADMINISTERED SCHEDULED MEDICATION, MEDICATION EDUCATION PROVIDED, PT TOLERATED MEDICATION WELL WITH APPLESAUCE, PT IS STABLE, CALL LIGHT WITHIN REACH, SAFETY MEASURES IN PLACE, WILL CONTINUE TO MONITOR.
--- NOTE | 2020-09-15 10:59 | NUR ---
WOUND CARE EVALUATION NOTE: REASON FOR EVALUATION: LOW ZACKERY SCALE AND SACRAL WOUND SKIN ASSESSMENT DONE WITH THIS 80 Y/O MALE PT ADMITTED TO [facility] WITH INITIAL DX. ABNORMAL LAB. PAST MEDICAL HX INCLUDES PARKINSON'S DISEASE, CKD, ANEMIA, DEMENTIA AND HYPERTENSION. ALL ABOVE INFORMATION OBTAINED FROM ADMISSION H&P. ADMITTING BMI 25.1, H/H 6.2/19.1, ALBUMIN 2.0. PT SKIN IS WARM AND DRY, BLE HAIR NO GROWTH, NO EDEMA. DORSAL PEDAL PULSES PRESENT AND NORMAL. CAPILLARY REFILLED < 2 SEC. F/C PATENT WITH MODERATE AMOUNT CLEAR YELLOW URINE OUTPUT. PLAN OF CARE DISCUSSED WITH PRIMARY RN. INTEGUMENTARY: -INCONTINENT ASSOCIATE DERMATITIS (IAD) TO: B/L GROINS, POSTERIOR SCROTAL, SKIN REDNESS, -COCCYX PRESSURE INJURY STAGE 2, 2X1X0.1CM WOUND BED IS 100% GRANULATING TISSUE, MOIST, NO ODOR, JULEE WOUND SKIN INTACT, SURROUNDING REDNESS INDICATED FURTHER DAMAGE RECOMMENDATIONS: -PROVIDE GOOD JULEE CARE, APPLY HYDRAGUARD TO B/L GROINS, POSTERIOR SCROTAL BID AND BINDERY OPERATOR -CLEANSE COCCYX WITH WOUND CLEANSING SOLUTION AND APPLY ADAPTIC DRESSING COVER WITH DRY DRESSING QD AND PRN IF SOILING -APPLY HEEL PROTECTORS TO BOTH HEELS AT ALL TIMES -OFFLOAD BILATERAL HEELS BY PLACING PILLOWS UNDER CALVES UNLESS OTHERWISE CONTRAINDICATED -PRESSURE REDISTRIBUTION SURFACE THERAPY -TURN AND REPOSITION Q2H, OFFLOAD SACRALCOCCYX BY TURNING RIGHT AND LEFT -CONTINUE TO FOLLOW RD RECOMMENDATIONS ALL ABOVE RECOMMENDATIONS DISCUSSED WITH PRIMARY RN. PLEASE CONTACT WOUND CARE NURSE FOR ANY QUESTION AND CHANGE OF WOUND CONDITION
--- NOTE | 2020-09-15 11:30 | NUR ---
PT RESTING IN BED, NO SIGNS OF DISTRESS NOTED, RESPIRATIONS ARE EVEN AND UNLABORED ON ROOM AIR, CALL LIGHT WITHIN REACH, WILL CONTINUE TO MONITOR.
[2020-09-15 12:00] VITALS: BP 107/54
[2020-09-15 12:38] LABS: CREATININE,URINE RANDOM 52 mg/dL (30-125); URINE SODIUM, RANDOM 70 mmol/l (40-220)
[2020-09-15] MEDS: HYDRAGUARD CREAM TP SCH (13:00)
[2020-09-15] MEDS ORDERED: fentaNYL citrate 0.05 MG/ML VIAL ONE (14:00)
[2020-09-15] MEDS ORDERED: MIDAZOLAM 2 MG/2 ML VIAL ONE ×2 (14:00→14:01)
--- NOTE | 2020-09-15 14:15 | NUR ---
PT OFF UNIT FOR PROCEDURE.
--- NOTE | 2020-09-15 14:40 | NUR ---
PT BACK IN ROOM, PT IS STABLE, WILL CONTINUE TO MONITOR VITALS PER PROTOCOL, CALL LIGHT WITHIN REACH.
[2020-09-15] MEDS ORDERED: FUROSEMIDE 20 MG/2 ML VIAL IVP SCH (15:00)
--- NOTE | 2020-09-15 15:00 | NUR ---
PT ASLEEP IN BED, NO SIGNS OF DISTRESS NOTED, RESPIRATIONS ARE EVEN AND UNLABORED ON 2 LITERS NASAL CANNULA, WILL CONTINUE TO MONITOR.
[2020-09-15] MEDS ORDERED: MIDAZOLAM 2 MG/2 ML VIAL IVP ONE (15:20)
[2020-09-15] MEDS ORDERED: fentaNYL citrate 0.05 MG/ML VIAL IVP ONE (15:20)
[2020-09-15 16:00] VITALS: BP 115/45
--- NOTE | 2020-09-15 17:00 | NUR ---
PT ASLEEP IN BED, NO SIGNS OF DISTRESS NOTED, CALL LIGHT WITHIN REACH, WILL CONTINUE TO MONITOR.
--- NOTE | 2020-09-15 18:40 | NUR ---
ADMINISTERED SCHEDULED MEDICATION, MEDICATION EDUCATION PROVIDED, PT TOLERATED WELL WITH APPLESAUCE, PT IS STABLE, NO SIGNS OF DISTRESS NOTED, CALL LIGHT WITHIN REACH, WILL CONTINUE TO MONITOR.
--- NOTE | 2020-09-15 19:10 | NUR ---
ENDORSE PT TO NIGHT NURSE FOR CONTINUITY OF CARE, PT IS STABLE
--- NOTE | 2020-09-15 19:11 | NUR ---
RECEIVED BEDSIDE ENDORSEMENT FROM MILADIS MANTILLA. PATIENT IS LYING IN BED, NO SOB, NO PAIN NOTED, IV SITE INTACT INFUSING IVF, PLAN OF CARE DISCUSSED, FALL PROTOCOL IN PLACE, SAFETY MEASURES IN PLACE, CALL LIGHT WITHIN REACH, WILL CONTINUE TO MONITOR. Addendum: 09/15/20 at 2056 by Whit Peña RN PATIENT DOES NOT HAVE IVF, IV SITE LAC, SALINE LOCK.
[2020-09-15 20:00] VITALS: BP 145/75
--- NOTE | 2020-09-15 20:58 | NUR ---
PATIENT IS AWAKE, ELEVATED HOB, DUE MEDS GIVEN ORDERED, TOLERATED WELL.
[2020-09-16] VITALS: BP 137/66
--- NOTE | 2020-09-16 00:20 | NUR ---
V/S TAKEN, REPOSITIONED, KEPT COMFORTABLE, NO DISTRESS, CALL LIGHT WITHIN REACH.
[2020-09-16] MEDS: HYDRAGUARD CREAM TP SCH ×2 (01:35→13:11)
--- NOTE | 2020-09-16 02:17 | NUR ---
CHECKED PATIENT, RESPIRATION EVEN AND UNLABORED, NO SOB. WILL MONITOR.
[2020-09-16 04:00] VITALS: BP 140/64
--- NOTE | 2020-09-16 04:10 | NUR ---
PERINEAL CARE RENDERED, NOTED SMALL BM. REPOSITIONED.
[2020-09-16] MEDS: LEVOTHYROXINE 0.05 MG TAB PO SCH (05:53)
--- NOTE | 2020-09-16 06:02 | NUR ---
SYNTHROID PO GIVEN ORDERED, TOLERATED WELL, REPOSITIONED, KEPT COMFORTABLE.
[2020-09-16 06:29] LABS: BASOPHILS % (AUTO) 0.6 % (0.0-2.0); EOSINOPHILS # (AUTO) 0.3 K/uL (0-0.4); EOSINOPHILS % (AUTO) 3.3 % (0.0-4.0); HEMATOCRIT 26.4 % (36-52); HEMOGLOBIN 8.7 g/dL (12.0-18.0); LYMPHOCYTES % (AUTO) 11.7 % (20.5-51.1); MEAN CORPUSCULAR HEMOGLOBIN 29 pg (27-31); MEAN CORPUSCULAR HGB CONC 33 g/dL (33-37); MEAN CORPUSCULAR VOLUME 88.1 fL (80-94); MONOCYTES # (AUTO) 0.7 K/uL (0.8-1.0); MONOCYTES % (AUTO) 8.6 % (1.7-9.3); NEUTROPHILS # (AUTO) 6.4 K/uL (1.8-7.7); NEUTROPHILS % (AUTO) 75.8 % (42.2-75.2); PLATELET COUNT (AUTO) 334 K/uL (140-450); RED BLOOD CELL COUNT(AUTO) 2.99 MIL/uL (4.20-6.10); RED CELL DISTRIBUTION WIDTH 16.1 % (11.6-13.7); WHITE BLOOD COUNT (AUTO) 8.4 K/uL (4.8-10.8)
--- NOTE | 2020-09-16 07:19 | NUR ---
PATIENT IS IN STABLE CONDITION. BEDSIDE ENDORSEMENT WAS GIVEN TO MILADIS CLEARY FOR CONTINUITY OF CARE.
--- NOTE | 2020-09-16 07:25 | NUR ---
RECEIVED PT FROM BUSINESS ANALYTICS DIRECTOR NURSE, PT IS RESTING IN BED, 18 G IV NOTED TO RFA, RAYMOND CATHETER NOTED W/300 ML URINE, SACRAL WOUND NOTED WITH DRESSING IN PLACE, ON ROOM AIR, SAFETY AND FALL PRECAUTIONS IN PLACE, 2 SIDE HEAD RAILS UP, NO SIGNS OF DISTRESS, WILL CONTINUE TO MONITOR PT
[2020-09-16 07:45] LABS: ANION GAP 15.3 (8-16); CARBON DIOXIDE 24.3 mmol/L (21-32); CHLORIDE 110 mmol/L (98-107); CREATININE 1.8 mg/dL (0.6-1.3); GLUCOSE 79 mg/dL (74-106); POTASSIUM 4.6 mmol/L (3.5-5.1); SODIUM SERUM 145 mmol/L (136-145); UREA NITROGEN, BLOOD 39 mg/dL (7-18)
[2020-09-16 08:00] VITALS: BP 149/72
[2020-09-16] MEDS: CALCIUM CARB 600 MG TAB PO SCH ×2 (08:51→20:26)
[2020-09-16] MEDS: EPOETIN ALFA 2,000 UNITS/ML VIAL IV SCH (08:51)
[2020-09-16] MEDS: GABAPENTIN 100 MG CAP PO SCH ×2 (08:52→20:26)
[2020-09-16] MEDS: VIT-B COMP/VIT-C/FOLIC ACID 1 TAB PO SCH (08:52)
[2020-09-16] MEDS: CHOLECALCIFEROL 1,000 IU TAB PO SCH (08:53)
[2020-09-16] MEDS: ZINC SULF 220 MG CAP PO SCH (08:58)
[2020-09-16] MEDS: CARBIDOPA/LEVODOPA 25/100 MG 1 TAB PO SCH ×3 (08:58→17:23)
[2020-09-16] MEDS: LACTULOSE 20 GM/30 ML UDC PO SCH ×2 (08:58→20:26)
--- NOTE | 2020-09-16 08:58 | NUR ---
PT WAS GIVEN THE SCHEDULED AM MEDICATIONS, CRUSHED WITH APPLE SAUCE, TOLERATED, NO DIFFICULTY SWALLOWING, NO COUGH NOTED WHEN TOOK SIPS OF WATER, NO SIGN OF DISTRESS NOTED AND WILL MONITOR PT.
[2020-09-16] MEDS: CYANOCOBALAMIN 1,000 MCG TAB PO SCH (09:00)
[2020-09-16] MEDS: ASCORBIC ACID 500 MG TAB PO SCH (09:00)
[2020-09-16] MEDS: PIMAVANSERIN TARTRATE 34 MG PO SCH (09:02)
[2020-09-16] MEDS: RASAGILINE MESYLATE PO SCH (09:03)
--- NOTE | 2020-09-16 11:00 | NUR ---
PT WAS CLEANED AND REPOSITIONED NOW AND MADE COMFORTABLE. WILL MONITOR PT.
[2020-09-16 12:00] VITALS: BP 116/56
--- NOTE | 2020-09-16 12:00 | NUR ---
DR. BAKER CAME AND ASKED IF THE PT HAD DIFFICULTY SWALLOWING AND MD WAS INFORMED THAT PT WAS FED IN BREAKFAST WITH PUREED DIET AND WAS GIVEN WATER AND ENSURE DRINK AND PT TOLERATED IT, WITH NO EVIDENCE OF DIFFICULTY SWALLOWING AND NO SIGN OF COUGHING WHEN AFTER TAKING THE WATER.
--- NOTE | 2020-09-16 12:45 | NUR ---
CALLED DR. BAKER AND INFORMED HIM THAT ESOPHAGRAM CANNOT BE DONE TO PT BECAUSE THE FLUORO ROOM IS DEFECTIVE AND SAID TO JUST CANCEL IT, WAS INFORMED THAT IT CAN BE DONE IN [facility] BUT DR. BAKER SAID THAT ITS NOT NECESSARY ANYMORE.
--- NOTE | 2020-09-16 13:11 | NUR ---
PT WAS GIVEN THE SCHEDULED MEDICATIONS, CRUSHED WITH APPLE SAUCE, PT SWALLOWED, NO DIFFICULTY NOTED, WILL MONITOR PT.
[2020-09-16 16:00] VITALS: BP 142/76
--- NOTE | 2020-09-16 17:23 | NUR ---
PT WAS GIVEN THE SCHEDULED MEDICATION, CRUSHED AND GIVEN WITH APPLE SAUCE, TOLERATED AND WILL MONITOR PT.
--- NOTE | 2020-09-16 19:10 | NUR ---
REVEIVED PT IN STAB;E CONDITION FROM AM NURSE FOR CONTINUITY OF CARE. PT IS AWAKE BUT CONFUSED. ON TELE MONITOR. BEDREST. WITH NO S/S OF ANY DISCOMFORT NOR PAIN NOTED. HAS HL ON THE RT FA G#18. CLEAR AND PATENT. BEDREST. BED ON LOW POSITION, SIDE RAILS UP X2 AND CALL LIGHT PLACED WITHIN REACH. NEED FREQ ROUNDS. WILL CONTINUE TO MONITOR.
[2020-09-16 20:00] VITALS: BP 101/55
--- NOTE | 2020-09-16 21:00 | NUR ---
ABLE TO TAKE ALL SCHEDULED PO MEDS WITH SOME APPLE SAUCE. THEN REPOSITIONED FOR COMFORT.
--- NOTE | 2020-09-16 23:00 | NUR ---
MADE ROUNDS. PT IS ASLEEP. NO S/S OF ANY DISCOMFORT NOR DISTRESS NOTED.
[2020-09-17] VITALS: BP 141/74
--- NOTE | 2020-09-17 | NUR ---
VITLA SIGNS TAKEN. STABLE. NO C/O ANY DISCOMFORT NOR PAIN NOTED.
[2020-09-17] MEDS: HYDRAGUARD CREAM TP SCH ×2 (01:02→13:08)
--- NOTE | 2020-09-17 01:55 | NUR ---
MADE ROUNDS. PT IS ASLEEP. NO S/S OF ANY DISCOMFORT NOR DISTRESS NOTED.
--- NOTE | 2020-09-17 03:20 | NUR ---
MADE ROUNDS. PT SLEEPING .NO DISCOMFORT NOTED. WILL CONTINUE TO MONITOR.
[2020-09-17 03:51] VITALS: BP 146/74
[2020-09-17] MEDS: LEVOTHYROXINE 0.05 MG TAB PO SCH (05:44)
--- NOTE | 2020-09-17 05:44 | NUR ---
DUE MEDS GIVEN WITH SOME APPLE SAUCE THEN TOOK SOME WATER WITH IT. TOLERATED WELL.
[2020-09-17 06:38] LABS: BASOPHILS # (AUTO) 0.1 K/uL (0.00-0.22); BASOPHILS % (AUTO) 0.6 % (0.0-2.0); EOSINOPHILS # (AUTO) 0.3 K/uL (0-0.4); EOSINOPHILS % (AUTO) 3.4 % (0.0-4.0); HEMATOCRIT 26.6 % (36-52); HEMOGLOBIN 8.9 g/dL (12.0-18.0); LYMPHOCYTES # (AUTO) 1.1 K/uL (2.0-11.5); LYMPHOCYTES % (AUTO) 12.3 % (20.5-51.1); MEAN CORPUSCULAR HEMOGLOBIN 29 pg (27-31); MEAN CORPUSCULAR HGB CONC 33 g/dL (33-37); MONOCYTES # (AUTO) 0.7 K/uL (0.8-1.0); MONOCYTES % (AUTO) 7.6 % (1.7-9.3); NEUTROPHILS # (AUTO) 6.7 K/uL (1.8-7.7); NEUTROPHILS % (AUTO) 76.1 % (42.2-75.2); PLATELET COUNT (AUTO) 330 K/uL (140-450); RED BLOOD CELL COUNT(AUTO) 3.02 MIL/uL (4.20-6.10); RED CELL DISTRIBUTION WIDTH 15.7 % (11.6-13.7); WHITE BLOOD COUNT (AUTO) 8.8 K/uL (4.8-10.8)
[2020-09-17 06:53] LABS: ANION GAP 15.1 (8-16); CARBON DIOXIDE 23.4 mmol/L (21-32); CHLORIDE 109 mmol/L (98-107); CREATININE 1.6 mg/dL (0.6-1.3); GLUCOSE 83 mg/dL (74-106); POTASSIUM 4.5 mmol/L (3.5-5.1); SODIUM SERUM 143 mmol/L (136-145); UREA NITROGEN, BLOOD 33 mg/dL (7-18)
--- NOTE | 2020-09-17 07:15 | NUR ---
ENDORSED PT IN STABLE CONDITION TO AM NURSE.
--- NOTE | 2020-09-17 07:20 | NUR ---
RECEIVED PT FROM TELESCOPE OPERATOR NURSE, PT IS SLEEPING IN BED, 18 G IV NOTED TO RFA, RAYMOND CATHETER NOTED W/ 200 ML URINE, SACRAL WOUND NOTED WITH DRESSING IN PLACE, RESPIRATIONS ARE EVEN ON ROOM AIR, SAFETY AND FALL PRECAUTIONS IN PLACE, 2 SIDE HEAD RAILS UP, NO SIGNS OF DISTRESS, WILL CONTINUE TO MONITOR PT
[2020-09-17 08:00] VITALS: BP 155/72
[2020-09-17] MEDS: VIT-B COMP/VIT-C/FOLIC ACID 1 TAB PO SCH (09:10)
[2020-09-17] MEDS: CALCIUM CARB 600 MG TAB PO SCH ×2 (09:10→20:46)
[2020-09-17] MEDS: CARBIDOPA/LEVODOPA 25/100 MG 1 TAB PO SCH ×3 (09:11→16:17)
[2020-09-17] MEDS: GABAPENTIN 100 MG CAP PO SCH ×2 (09:11→20:46)
[2020-09-17] MEDS: CHOLECALCIFEROL 1,000 IU TAB PO SCH (09:12)
[2020-09-17] MEDS: CYANOCOBALAMIN 1,000 MCG TAB PO SCH (09:12)
[2020-09-17] MEDS: ZINC SULF 220 MG CAP PO SCH (09:12)
[2020-09-17] MEDS: LACTULOSE 20 GM/30 ML UDC PO SCH ×2 (09:13→20:46)
[2020-09-17] MEDS: ASCORBIC ACID 500 MG TAB PO SCH (09:14)
--- NOTE | 2020-09-17 09:15 | NUR ---
DR GIBBS MADE ROUNDS, ASSESSED PT, INFORMED THAT PT'S SON AGREED TO PUT PT IN HOSPICE, [facility].
[2020-09-17] MEDS: RASAGILINE MESYLATE PO SCH (09:18)
[2020-09-17] MEDS: PIMAVANSERIN TARTRATE 34 MG PO SCH (09:18)
--- NOTE | 2020-09-17 09:18 | NUR ---
MORNING MEDICATION ADMINISTERED CRUSHED WITH APPLESAUCE, ASPIRATION PRECAUTIONS INITIATED, HOB @ 30 DEGREES, WILL CONTINUE TO MONITOR PT
--- NOTE | 2020-09-17 10:40 | NUR ---
PT WAS CLEANED AND REPOSITIONED, WILL CONTINUE TO MONITOR.
[2020-09-17 12:00] VITALS: BP 110/55
--- NOTE | 2020-09-17 13:08 | NUR ---
HYDRAGUARD WAS APPLIED TO PT'S PERINEAL AND GROIN AREA.
[2020-09-17 16:00] VITALS: BP 103/58
--- NOTE | 2020-09-17 19:15 | NUR ---
ENDORSED PT TO QUALITY INTERN NURSE FOR CONTINUITY OF CARE
--- NOTE | 2020-09-17 19:20 | NUR ---
RECEIVED PT IN STABLE CONDITION FROM AM NURSE. AWAKE,ALERT ,ORIENTED X1-2. BEDREST. ON TELE MONITOR. REPOSITONED FOR COMFORT FOR PT TRIED TO GET OUT OF BED. BED ON LOWSET POSITION. SIDE RAIS;2. CALL LIGHT PLACED WITHIN EASY REACH AND NEED FREQUENT ROUNDS. HAS JOE LOWER LEG SCD MACHINE ON. BOTH HEEL WITH PROTECTOR. ELEVATED BOTH FEET ON PILLOW. HAS HL ON THE LT FA G#18. CLEAR AND PATENT. WITH SACRAL OPEN WOUND, DRESSING CLEAN AND DRY. RAYMOND CATHETER DRAINING WELL TO A CLEAR YELLOW URINE. WILL CONTINUE TO MONITOR.
[2020-09-17 20:00] VITALS: BP 110/77
[2020-09-17] MEDS ORDERED: CRUSHER, PILL MC ONE (20:32)
--- NOTE | 2020-09-17 21:30 | NUR ---
PT HAD A MODERATE SOFT BM. CLEANED AND KEPT DRY. WOUND DRESSING ON SACRO-COCCYGEAL AREA REMOVED. CLEANED AND PAT DRY. TOOK PICTURE WOUND AREA 2 CM X 0.8 CM . PINK BED COLOR AND WHITE ON SURROUNDING SKIN. NO DRAINAGE NOTED. THEN APPLIED ADAPTIC DRESSING AND COVERED WITH DRY DRESSING.
--- NOTE | 2020-09-17 22:45 | NUR ---
CHECKED ON PT. SLEEPING WELL AT THIS TIME. NO S/S OF ANY DISTRESS NOTED. WILL CONTINUE TO MONITOR.
[2020-09-18] VITALS: BP 138/75
--- NOTE | 2020-09-18 00:30 | NUR ---
CHECKED ON PT. ASLEEP. NO S/S OF ANY DISCOMFORT NOR PAIN NOTED.
[2020-09-18] MEDS: HYDRAGUARD CREAM TP SCH ×2 (00:58→14:50)
--- NOTE | 2020-09-18 02:20 | NUR ---
MADE ROUNDS. PT IS AWAKE. HE SAID HE IS HUNGRY. GAVE APPLE SAUCE. TOLERATED WELL.
[2020-09-18 03:41] VITALS: BP 156/83
--- NOTE | 2020-09-18 04:30 | NUR ---
MADE ROUNDS. PT IS SLEEPING. NO S/S OF ANY DISCOMFORT NOTED.
[2020-09-18 06:02] LABS: BASOPHILS % (AUTO) 0.4 % (0.0-2.0); EOSINOPHILS # (AUTO) 0.5 K/uL (0-0.4); EOSINOPHILS % (AUTO) 5.6 % (0.0-4.0); HEMATOCRIT 26.8 % (36-52); HEMOGLOBIN 8.9 g/dL (12.0-18.0); LYMPHOCYTES % (AUTO) 11.9 % (20.5-51.1); MEAN CORPUSCULAR HEMOGLOBIN 29 pg (27-31); MEAN CORPUSCULAR HGB CONC 33 g/dL (33-37); MONOCYTES # (AUTO) 0.8 K/uL (0.8-1.0); NEUTROPHILS # (AUTO) 6.2 K/uL (1.8-7.7); NEUTROPHILS % (AUTO) 73.1 % (42.2-75.2); PLATELET COUNT (AUTO) 331 K/uL (140-450); RED BLOOD CELL COUNT(AUTO) 3.04 MIL/uL (4.20-6.10); RED CELL DISTRIBUTION WIDTH 15.8 % (11.6-13.7); WHITE BLOOD COUNT (AUTO) 8.5 K/uL (4.8-10.8)
[2020-09-18] MEDS: LEVOTHYROXINE 0.05 MG TAB PO SCH (06:07)
[2020-09-18 06:16] LABS: ANION GAP 12.2 (8-16); CARBON DIOXIDE 26.7 mmol/L (21-32); CHLORIDE 107 mmol/L (98-107); CREATININE 1.6 mg/dL (0.6-1.3); GLUCOSE 84 mg/dL (74-106); POTASSIUM 4.9 mmol/L (3.5-5.1); SODIUM SERUM 141 mmol/L (136-145); UREA NITROGEN, BLOOD 33 mg/dL (7-18)
--- NOTE | 2020-09-18 07:15 | NUR ---
RECEIVED PATIENT FROM RIVET HOLE MACHINE OPERATOR NURSE EVELYN FOR CONTINUITY OF CARE. PATIENT IN STABLE CONDITION. RESPIRATIONS EVEN AND UNLABORED, ROOM AIR. IV INTACT AND PATENT. SAFETY MEASURES IN PLACE. BED IN LOW POSITION. BED ALARM ON. CALL LIGHT WITHIN REACH. WILL CONTINUE TO MONITOR.
[2020-09-18 08:00] VITALS: BP 165/80
[2020-09-18] MEDS ORDERED: GABA-636 PO (08:18)
[2020-09-18] MEDS ORDERED: CARB1TAB17 PO (08:18)
[2020-09-18] MEDS ORDERED: PROC2I IV (08:18)
[2020-09-18] MEDS ORDERED: NITR100C7 PO (08:18)
[2020-09-18] MEDS: VIT-B COMP/VIT-C/FOLIC ACID 1 TAB PO SCH (09:42)
[2020-09-18] MEDS: CARBIDOPA/LEVODOPA 25/100 MG 1 TAB PO SCH ×2 (09:42→14:50)
[2020-09-18] MEDS: LACTULOSE 20 GM/30 ML UDC PO SCH (09:42)
[2020-09-18] MEDS: CALCIUM CARB 600 MG TAB PO SCH (09:42)
[2020-09-18] MEDS: CYANOCOBALAMIN 1,000 MCG TAB PO SCH (09:43)
[2020-09-18] MEDS: GABAPENTIN 100 MG CAP PO SCH (09:43)
[2020-09-18] MEDS: ZINC SULF 220 MG CAP PO SCH (09:43)
[2020-09-18] MEDS: CHOLECALCIFEROL 1,000 IU TAB PO SCH (09:43)
[2020-09-18] MEDS: ASCORBIC ACID 500 MG TAB PO SCH (09:43)
--- NOTE | 2020-09-18 09:45 | NUR ---
GAVE MEDICATIONS TO PATIENT AT THIS TIME. PATIENT TOLERATED WELL. BED IN LOW POSITION. CALL LIGHT WITHIN REACH. BED ALARM ON. WILL CONTINUE TO MONITOR.
[2020-09-18] MEDS: RASAGILINE MESYLATE PO SCH (09:46)
[2020-09-18] MEDS: PIMAVANSERIN TARTRATE 34 MG PO SCH (09:46)
--- NOTE | 2020-09-18 11:00 | NUR ---
CLEANING AND CHANGING LINEN AT THIS TIME. PATIENT TOLERATING WELL. BED IN LOW POSITION. BED ALARM ON. CALL LIGHT WITHIN REACH. WILL CONTINUE TO MONITOR.
[2020-09-18 12:00] VITALS: BP 140/83
--- NOTE | 2020-09-18 13:10 | NUR ---
DISCHARGE PLANNING: MARIBELL FAXED CLINICALS TO [facility] [phone] FOR HOSPICE AT HOME. MARIBELL CONTACTED [facility] TO VERIFY IF CLINICALS WERE RECEIVED. MARIBELL SPOKE WITH SHANTEL WHO STATED THAT SHE WOULD CONTACT MARIBELL. Addendum: 09/18/20 at 1325 by Ken Tejeda SS MARIBELL CONTACTED NEIDA MICHAEL TO VERIFY THAT HOSPICE ARRANGEMENTS WERE BEING MADE AT PATIENT'S HOME: [id number] [place] [address]. MAGALYS PROVIDED [facility] CONTACT INFORMATION [phone] - [facility]. MARIBELL CONTACTED [facility] [phone]. MARIBELL LEFT . Addendum: 09/18/20 at 1330 by Ken Tejeda SS MARIBELL WAS CONTACTED BY QUINTIN WHO STATED CLINICALS WERE RECEIVED. QUINTIN STATED SHE WOUL FOLLOW UP WITH FAMILY. Addendum: 09/18/20 at 1532 by Ken YUEN MARIBELL WAS CONTACTED BY TANIYA WHO REQUESTED PHYSICIAN'S ORDERS. MARIBELL INFORMED CHARGE NURSE MILADIS AGARWAL. TANIYA REQUESTED THAT PHYSICIAN'S ORDERS BE FAXED TO [phone]. MILADIS AGARWAL WAS NOTIFIED.
--- NOTE | 2020-09-18 13:23 | NUR ---
*ST: Bedside Swallow Evaluation* Pt is 80 yo M admitted from [facility] 09/13/2020 c anemia. PMHx Parkinson's dz, dementia, anemia, GERD, HTN, hypothyroidism, CKD. CXR 09/13 - tracheobronchomegaly more prominent since 08/07/2020; subtle streaky opacities of the lung mitchell suggest scarring or ATX. Pt s/p EGD c balloon dilatation of esophagus 09/15 - suspected esophageal motility d/o such as achalasia or hypertensive lower esophageal sphincter. GI recommended f/u XR esophagram; however, study not done d/t machinery being out of order in hospital. Cleared with charge weigher, Lalita, for BDSE. Per ONLINE ADVERTISING MANAGERMireya, pt had no overt difficulty with Puree/Thin Liquids breakfast tray this AM, consuming 100%. Unknown PLOF upon reviewing paperwork from [facility]. Pt seen bedside, alert, HOB close to 80 degrees, receiving lunch with feed-assist by ONLINE ADVERTISING MANAGER. Noted ONLINE ADVERTISING MANAGER followed safe swallow strategies with regards to pacing and small bolus size. Pt had fair straw sip thin, fair tsp stripping, slightly slow oral phase, fair clearing, slight delay swallow trigger, fair laryngeal excursion, no overt coughing nor throat clearing. Vocal quality unchanged post PO's. POC and recommendations d/w pt and pt's nsg staff. P: Rec continue present Puree/Thin Liquids feed-assist, slow rate, small bites Follow safe swallow strategies, oral care, aspiration precautions Nsg to monitor and notify MANAGEMENT LEAD of changes in status -Marzena Kohli MA, CCC-MANAGEMENT LEAD Addendum: 09/18/20 at [address] Amended: Links added.
--- NOTE | 2020-09-18 14:30 | NUR ---
GAVE REPORT TO FARHAD AT [facility] FOR CONTINUITY OF CARE. ALL QUESTIONS ANSWERED AT THIS TIME.
[2020-09-18] MEDS ORDERED: VANCOMYCIN PER PHARMACY MC PRN (16:15)
[2020-09-18] MEDS ORDERED: CARBIDOPA/LEVODOPA 25/100 MG 1 TAB PO SCH (17:00)
--- NOTE | 2020-09-18 17:10 | NUR ---
GAVE DISCHARGE INSTRUCTIONS TO PATIENT AND TRANSPORT TEAM AT THIS TIME. IV REMOVED, LUMEN INTACT. ID BAND REMOVED. PATIENT PLACED ON GURNEY IN STABLE CONDITION.
[2020-09-18] MEDS ORDERED: VANCOMYCIN 750 MG in DEXTROSE 5% 250 ML IV SCH (18:00)
== END 2020-09-18 17:10 | disposition home or self-care (01) | DRG 811 ==
LOC: MED 14:34 → MTU 16:38 → MED 17:00
PROVIDERS: ADMIT Emergency Medicine; ATTEND Emergency Medicine
PROC: 30233N1 Transfusion of Nonautologous Red Blood Cells into Peripheral Vein, Percutaneous Approach (ICD-10-PCS; principal; 2020-09-13)
PROC: 0D758ZZ Dilation of Esophagus, Via Natural or Artificial Opening Endoscopic (ICD-10-PCS; 2020-09-15)
PROC: 0DB68ZX Excision of Stomach, Via Natural or Artificial Opening Endoscopic, Diagnostic (ICD-10-PCS; 2020-09-15 16:40)
DX: D50.9 Iron deficiency anemia, unspecified (principal); N17.0 Acute kidney failure with tubular necrosis; E43 Unspecified severe protein-calorie malnutrition; N39.0 Urinary tract infection, site not specified; L89.152 Pressure ulcer of sacral region, stage 2; E03.9 Hypothyroidism, unspecified; F02.80 Dementia in other diseases classified elsewhere, unspecified severity, without behavioral disturbance, psychotic disturbance, mood disturbance, and anxiety; G20 Parkinson's disease; K44.9 Diaphragmatic hernia without obstruction or gangrene; N18.9 Chronic kidney disease, unspecified; K21.9 Gastro-esophageal reflux disease without esophagitis; I12.9 Hypertensive chronic kidney disease with stage 1 through stage 4 chronic kidney disease, or unspecified chronic kidney disease; R13.10 Dysphagia, unspecified; R62.7 Adult failure to thrive; N18.31 Chronic kidney disease, stage 3a; K22.0 Achalasia of cardia; Z68.25 Body mass index [BMI] 25.0-25.9, adult
CPT/HCPCS: 36415; 36430; 71045; 74018; 80048; 80053; 81001; 82272; 82570; 82607; 82728; 82746; 83036; 83540; 83605; 83735; 83880; 84100; 84300; 84436; 84439; 84443; 84479; 84484; 85025; 85045; 85610; 85730; 86677; 86886; 86900; 86901; 86920; 87040; 87081; 87086; 87186; 92610; 93005; 96365; 97110; 97112; 97116; 97161-GP; 97530; 99285; C1727; J0696; J0885; J2250; J2916; J3010; J3370; J3420; J7030; J7060; P9016; Q0092